=== PATIENT | male | born 1960 | race Caucasian/White ===

== ENCOUNTER → 2020-05-17 09:29 | Outpatient (CLI) | payer MEDICARE, SELFPAY ==
[2020-05-17 11:02] LABS: Chloride 101 mmol/L (98-107); Potassium 5.2 mmoL/L (3.5-5.1); Sodium 138 mmol/L (136-145)
[2020-05-17 11:05] LABS: Anion Gap 13.2 mEq/L (5-15); Blood Urea Nitrogen 16 mg/dl (9-20); Calcium 9.8 mg/dl (8.4-10.2); Carbon Dioxide 29 mmol/L (22.0-30.0); Estimated Glomerular Filt Rate 69 ml/min (>60); GFR (African American) 83 ML/MIN (>60); Glucose 101 mg/dl (74-100)
[2020-05-17 12:42] LABS: Basophils # 0.1 K/mm3 (0-0.2); Basophils % 0.8 % (0.1-2.0); Eosinophils # 0.4 K/mm3 (0.0-0.4); Eosinophils % 4.5 % (0.1-12.0); Hematocrit 45.1 % (42.0-52.0); Hemoglobin 15.1 g/dL (14.1-18.0); Lymphocytes # 3.4 K/mm3 (0.7-4.5); Lymphocytes % 39.1 % (10-50); Mean Corpuscular HGB Conc 33.4 g/dL (31.8-35.4); Mean Corpuscular Hemoglobin 30.4 pg (27.0-31.2); Mean Corpuscular Volume 91.1 fl (80-94); Mean Platelet Volume 7.7 fl (7.4-10.4); Monocytes # 0.8 K/mm3 (0.1-1.0); Monocytes % 9.2 % (1.7-9.3); Neutrophils % 46.4 % (37.0-80.0); Platelet Count 462 K/mm3 (142-424); Red Blood Count 4.95 M/mm3 (4.60-6.20); White Blood Count 8.7 K/mm3 (4.8-10.8)
[2020-05-18 08:21] LABS: PSA, Free 0.16 ng/mL; Prostate Specific Ag 0.5 ng/mL (0.0-4.0); Testosterone,Total 334 ng/dL (264-916)
== END ==
PROVIDERS: Visit Provider Family Medicine
DX: N18.3 Chronic kidney disease, stage 3 (moderate) (principal); K62.5 Hemorrhage of anus and rectum; R79.89 Other specified abnormal findings of blood chemistry; N50.812 Left testicular pain; N50.811 Right testicular pain; Z12.5 Encounter for screening for malignant neoplasm of prostate; E29.1 Testicular hypofunction
CPT/HCPCS: 36415; 80048; 84153; 84154; 84403; 85025

== ENCOUNTER → 2020-05-20 12:48 | Outpatient (CLI) | payer MEDICARE, SELFPAY ==
--- NOTE | 2020-05-20 12:58 | US_ITS ---
PROCEDURE: US TESTICULAR CLINICAL INDICATION: MAGO TESTICULAR PAIN COMPARISON: No exams were available for comparison FINDINGS: Right testicle: 26 millimeters x 32 mm x 30 millimeters. Epididymis 12 millimeters X 9 millimeters Left testicle: 20 millimeters x 42 20 millimeters X 28 millimeters. Epididymis: 10 millimeters x 7 millimeters Scrotum: Mild bilateral hydroceles Doppler signal: Mild increase in vascularity of the left testicle IMPRESSION: Bilateral hydroceles, possible mild left orchitis Dictated by: Bruce Tai 05/20/2020 14:53 Electronically signed by Bruce Tai in [place] 05/20/2020 14:53
== END ==
PROVIDERS: PCP Family Medicine; Visit Provider Family Medicine
DX: N50.812 Left testicular pain (principal); N50.811 Right testicular pain
CPT/HCPCS: 76870

== ENCOUNTER → 2020-05-30 08:30 | Outpatient (CLI) | payer MEDICARE, SELFPAY ==
[2020-05-30 10:29] LABS: Coronavirus 19 IgG Antibody Negative (Negative); Coronavirus 19 IgM Antibody Negative (Negative)
== END ==
PROVIDERS: Visit Provider Internal Medicine Gastroenterology
DX: Z01.818 Encounter for other preprocedural examination (principal)
CPT/HCPCS: 36415; 86328

== ENCOUNTER 2020-06-02 12:13 | Day surgery (SDC) | payer MEDICARE, SELFPAY ==
[2020-05-27 11:45] VITALS: BMI 29.3
--- NOTE | 2020-05-29 09:16 | SUR.PREOP ---
05/29/2020 @ 915--PHONE CALL MADE TO PATIENT. PATIENT UNDERSTANDS THAT LAB WORK AND COVID TESTING NEEDS TO BE COMPLETED @ 0900 ON 05/30/2020. PATIENT UNDERSTANDS IF LAB WORK AND COVID-19 TESTS ARE NOT COMPLETED BY 12PM ON THAT DATE, THE SURGERY SCHEDULED WILL BE CANCELLED AND RESCHEDULED FOR ANOTHER TIME.
[2020-06-02] VITALS (7 sets, daily range): BP systolic 100–123; BP diastolic 58–84; PULSE 50–62; RESP 18; TEMP 36.7; O2SAT 90–98
--- NOTE | 2020-06-02 14:17 | P.PCN_ITS ---
[facility] Procedure Note Procedure Note:: Colonoscopy Procedure Report: Colonoscopy with cold snare polypectomy and monopolar ablation/coagulation to destruction of internal hemorrhoids Endoscopist: Ozzy Koo II, MD Referring physician: Keshawn Hernandez MD Date of Procedure: June 02, 2020 Equipment: Olympus 180 variable stiffness pediatric colonoscope Sedation: MAC sedation Indication: Mr. Bahena is a 59-year-old gentleman with bright red blood and some darker blood with his bowel movements over the last year. This has increased and he notices this especially with looser bowel movements. He does note blood that coats the outside of the stool or drips into the commode. He does report some excessive wiping. He has lost 4 pounds in the last 2 or 3 weeks. He does state that his bowel movements are mostly regular. He reports no abdominal pain but has noted some burning abdominal discomfort that is generalized. He does state that his maternal aunt had colon cancer at the age of 56. This is his first colonoscopy performed for diagnostic purposes. Procedure: Prior to the procedure, a history and physical exam was performed, and patient's medications and allergies were reviewed. The risks, benefits and alternatives of the sedation and procedure were discussed with the patient. All questions were answered and informed consent was obtained. The patient was brought to the procedure room. Patient identification and proposed procedure were verified by the physician and the nurse. The patient was placed in a left lateral decubitus position and the scope was passed under direct vision. Throughout the procedure, the patient's blood pressure, pulse, and oxygen saturations were monitored continuously. The colonoscopy was accomplished without difficulty. The patient tolerated the procedure well. Findings: On digital rectal examination there was normal rectal tone. There were no external hemorrhoids. The prostate was 2+, mildly firm but symmetric without nodules. The colonoscope was introduced through the anal canal to the rectum and advanced to the cecum. The ileocecal valve and appendiceal orifice were id entified. The scope was advanced a short distance into the ileum which appeared grossly normal. The scope was then withdrawn into the colon. There were 6 colon polyps (cecum x2 (4 and 7 mm), ascending x2 (3 and 5 mm) and transverse x2 (3 and 4 mm)) which were all removed via cold snare polypectomy. There were a few mildly scattered diverticuli throughout the descending and sigmoid colon (LEFT colon). The rectum itself was normal. Upon retroflexion within the rectum there were grade 2 internal hemorrhoids. 3 columns of the hemorrhoids were ablated/coagulated using monopolar ablation to destruction. The preparation was excellent throughout with [place] Preparation Score of 9. The cecal time was 12 minutes. Impression: 1. Diminutive colonic polyps x6 2. Mild left-sided diverticulosis 3. Grade 2 internal hemorrhoids status post monopolar ablation/coagulation to destruction Plan: I will follow up the polyp pathology and recommend repeat colonoscopy again in 3 years based upon the polyp histology and family history. I would encourage bulk fiber supplementation on a long-term daily maintenance basis.
== END 2020-06-02 15:12 | disposition home or self-care (01) ==
LOC: OUTP 12:14
PROVIDERS: PCP Family Medicine; Visit Provider Internal Medicine Gastroenterology
PROC: 0DJD8ZZ Inspection of Lower Intestinal Tract, Via Natural or Artificial Opening Endoscopic (ICD-10-PCS; CPT 45378; principal; 2020-06-02 13:30)
DX: K63.5 Polyp of colon (principal); K57.30 Diverticulosis of large intestine without perforation or abscess without bleeding; K64.1 Second degree hemorrhoids; E78.5 Hyperlipidemia, unspecified; I25.10 Atherosclerotic heart disease of native coronary artery without angina pectoris; Z87.448 Personal history of other diseases of urinary system; Z88.6 Allergy status to analgesic agent; Z88.8 Allergy status to other drugs, medicaments and biological substances; Z79.82 Long term (current) use of aspirin; Z79.899 Other long term (current) drug therapy; I10 Essential (primary) hypertension; K21.9 Gastro-esophageal reflux disease without esophagitis; M19.90 Unspecified osteoarthritis, unspecified site; Z80.9 Family history of malignant neoplasm, unspecified
CPT/HCPCS: 45385; 46930; 88305

== ENCOUNTER 2021-08-11 14:38 | Emergency (ER) | payer MEDICARE, SELFPAY ==
[2021-08-11 14:39] VITALS: BP 148/87; PULSE 89; RESP 18; TEMP 36.7; O2SAT 100; BMI 32.8
[2021-08-11 14:42] VITALS: BP 141/82; PULSE 63; RESP 18; O2SAT 95; BMI 35.4
[2021-08-11 15:30] VITALS: BP 141/82; PULSE 63; RESP 18; TEMP 37; O2SAT 95; BMI 29.9
[2021-08-11 16:03] LABS: Apearance,Urine Clear (Clear); Bilirubin,Urine Negative (Negative); Blood, Urine Trace (Negative); Color,Urine Yellow (Yellow); Glucose,Urine (UA) Negative (Negative); Ketones,Urine Negative (Negative); PH,Urine 6.5 (5.0-8.5); Protein,Urine Negative (Negative); Specific Gravity, Urine 1.015 (1.005-1.030); UTC Leukocyte Esterase,Urine 1+ (Negative); UTC Nitrate,Urine Negative (Negative); Urobilinogen,Urine 0.2 EU/dl (0.2)
--- NOTE | 2021-08-11 16:33 | PC.NURSE ---
PATIENT SENT TO ER PER Marlee JOHNSON FOR FURTHER EVALUATION. REPORT GIVEN TO Maria Dolores MONTES RN
--- NOTE | 2021-08-11 16:41 | CT_ITS ---
PROCEDURE INFORMATION: Exam: CT Abdomen And Pelvis Without Contrast Exam date and time: 08/11/2021 4:41 PM Age: 60 years old Clinical indication: Abdominal pain; Acute; Prior surgery; Surgery date: 6+ months; Surgery type: Gallbladder and l5/s1 back surgery; Patient HX: Flank pain x 3 days; Additional info: Flank pain, hematuria TECHNIQUE: Imaging protocol: Computed tomography of the abdomen and pelvis without contrast. Radiation optimization: All CT scans at this facility use at least one of these dose optimization techniques: automated exposure control; mA and/or kV adjustment per patient size (includes targeted exams where dose is matched to clinical indication); or iterative reconstruction. COMPARISON: US TESTICULAR 05/20/2020 1:27 PM FINDINGS: Liver: The unenhanced liver is unremarkable. Gallbladder and bile ducts: There is no biliary ductal dilatation status post cholecystectomy. Pancreas: Unremarkable. Spleen: No splenomegaly. Splenic densities likely represent calcified granulomas. Adrenal glands: No adrenal nodule. Kidneys and ureters: No hydronephrosis or calculi. Stomach and bowel: There are scattered colonic diverticula. No obstruction. Appendix: The appendix is normal. Intraperitoneal space: No free air or fluid. There is haziness throughout the mesentery with scattered subcentimeter mesenteric lymph nodes. Vasculature: The abdominal aorta is normal in caliber. Coronary artery calcifications/stents are present. Note is made of embolic material within the right gonadal vein. Lymph nodes: There is an enlarged left inguinal lymph node. Urinary bladder: Unremarkable as visualized. Reproductive: Unremarkable as visualized. Bones/joints: No acute fracture. There are degenerative changes of the spine. Soft tissues: Unremarkable. IMPRESSION: 1. No renal calculus or hydronephrosis. 2. Haziness throughout the mesentery with scattered subcentimeter mesenteric lymph nodes could be seen in the setting of mesenteric panniculitis. This finding can be seen in the setting of myriad conditions including neoplastic infiltration therefore recommend follow-up CT of the abdomen and pelvis with intravenous contrast in six months. 3. Enlarged left inguinal lymph node, nonspecific.
--- NOTE | 2021-08-11 17:42 | HMH.EDGENADL ---
ED Disposition Clinical Impression: Low back pain Qualifiers: Chronicity: acute Back pain laterality: bilateral Sciatica presence: with sciatica Sciatica laterality: bilateral sciatica Qualified Code(s): M54.42 - Lumbago with sciatica, left side; M54.41 - Lumbago with sciatica, right side Hematuria Qualifiers: Hematuria type: benign essential microscopic Qualified Code(s): R31.1 - Benign essential microscopic hematuria Disposition: Home, Self-Care Condition on Discharge: Good Additional Instructions: Follow-up with PCP in 1 to 2 days. Repeat urinalysis through your PCP office and if continued hematuria, referral to urology. Referrals: Provider,Referral, MD [Primary Care Provider] - 3 days Time of Disposition: 18:15 - Critical Care Critical Care Time: No Attestation: On 08/11/21, the high probability of a clinically significant, sudden or life threatening deterioration of the following system(s) required my full and direct attention, intervention and personal management. The time I documented below is in addition to time spent performing reported procedures but includes the following listed in this critical care notation. Medical Decision Making - Medical Records Medical records reviewed: Yes: I reviewed the patient's medical records. - Deonte Inquiry Pt receiving controlled substance: No Vital Signs: 08/11/21 14:39 08/11/21 14:42 08/11/21 15:30 Temperature 98.1 F 98.6 F Temperature Source Oral Oral Pulse Rate [Left Radial] 89 63 63 Respiratory Rate 18 18 18 Blood Pressure [Left Arm] 148/87 H 141/82 H 141/82 H Blood Pressure Mean [Left Arm] 107 101 101 Blood Pressure Source [Left Arm] Automatic Cuff Automatic Cuff Blood Pressure Position [Left Arm] Sitting Sitting 02 Sat by Pulse Oximetry 100 95 95 Oxygen Delivery Method Room Air Room Air Room Air - Lab Data Lab results reviewed: Yes: I reviewed the patient's lab results. Lab Results 08/11/21 16:02: Urine Color Yellow, Urine Appearance Clear, Urine pH 6.5, Ur Specific [place] 1.015, Urine Protein Negative, Urine Glucose (UA) Negative, Urine Ketones Negative, Urine Blood Trace, Urine Nitrate Negative, Urine Bilirubin Negative, Urine Urobilinogen 0.2, Ur Leukocyte Esterase 1+ A 08/11/21 17:45: Sodium 139, Potassium 4.2, Chloride 104, Carbon Dioxide 26, Anion Gap 13.2, BUN 17, Creatinine 1.20, Estimated Creat Clear 78, Estimated GFR 62, Est GFR ( Amer) 75, Glucose 102 H, Calcium 9.4 Result diagrams: 08/11/21 17:45 Orders (Tests/Meds): ORDERS Category Date Time Status Urine Culture Stat Micro 08/11/21 15:50 Received Medical Decision Narrative: 60yo M sent to the emergency department from [facility] secondary to low back pain rating down both legs after the [facility] midlevel was concerned the patient might have a kidney stone. Patient has undergone a CT scan and will add basic metabolic panel to evaluate his renal function. Patient has no sign of kidney stone. His metabolic panel demonstrates a creatinine of 1.2. Patient is discharged home in stable condition. I suspect the patient has flareup of his chronic low back pain with hematuria. Encouraged to follow-up with his PCP for repeat urinalysis and possibly be evaluated by urology for his hematuria. General Adult HPI - General Chief complaint: PAIN Stated complaint: lower back pain Time Seen by Provider: 08/11/21 17:42 Mode of Arrival: Ambulatory Source of Information: Patient Limitations: No Limitations Description of Symptoms (Recalled from ER Triage Doc. by RN): PATIENT C/O LOWER BACK PAIN THAT STARTED TUESDAY MORNING. ALSO REPORTS PINS/NEEDLE SENSATION TO BACK OF BILATERAL LEGS. NO KNOWN INJURY. PATIENT REPORTS HX OF LOWER BACK SURGERY AND STAGE 4 KIDNEY DISEASE - History of Present Illness HPI narrative: 60yo M initially evaluated in the [facility] sent to the emergency department after they found laparoscopic hematuria in his urine. Patient reports a history of stage IV kidney disease luis
[2021-08-11 17:59] LABS: Chloride 104 mmol/L (98-107); Sodium 139 mmol/L (136-145)
[2021-08-11 18:00] LABS: Potassium 4.2 mmoL/L (3.5-5.1)
[2021-08-11 18:02] LABS: Blood Urea Nitrogen 17 mg/dl (9-20); Creatinine Clearance Estimated 78 mL/min (50-200); Estimated Glomerular Filt Rate 62 ml/min (>60); GFR (African American) 75 ML/MIN (>60)
[2021-08-11 18:03] LABS: Anion Gap 13.2 mEq/L (5-15); Calcium 9.4 mg/dl (8.4-10.2); Carbon Dioxide 26 mmol/L (22.0-30.0); Glucose 102 mg/dl (74-100)
[2021-08-11 18:51] VITALS: BP 140/83; PULSE 53; RESP 20; TEMP 37; O2SAT 100
== END 2021-08-11 18:52 | disposition home or self-care (01) ==
LOC: ER 14:53 → UTC 15:08 → ER 16:34
PROVIDERS: Nurse Practitioner Family; Emergency Provider Family Medicine
DX: M54.42 Lumbago with sciatica, left side (principal); R31.1 Benign essential microscopic hematuria; N18.4 Chronic kidney disease, stage 4 (severe); I25.10 Atherosclerotic heart disease of native coronary artery without angina pectoris; K21.9 Gastro-esophageal reflux disease without esophagitis; E78.5 Hyperlipidemia, unspecified; I10 Essential (primary) hypertension; Z79.899 Other long term (current) drug therapy
CPT/HCPCS: 74176; 80048; 81003; 87086; 99283

== ENCOUNTER → 2023-01-24 07:14 | Outpatient (CLI) | payer MEDICARE, SELFPAY ==
--- NOTE | 2023-01-24 | CA_ITS ---
APPROVED REPORT Exam: Exercise Treadmill Technologist: Concepcion Rush Ht: 5 ft 3 in Wt: 181 lbs BSA: 1.85 m2 HR: 51 bpm BP: 117/67 mmHg Indications: Chest pain Medical History Medications: Famotidine,,,,, RoSUVASTATIN,,,,, Stress Test Details Test: Lake HR Resting HR: 52 bpm Max Heart Rate (APMHR): 158.457914 bpm Max HR Achieved: 142 bpm Target HR (85% APMHR): 134.312325 bpm % of APMHR: 89.87 Recovery HR: 80 bpm BP Resting BP: 117.0/67.0 mmHg Max BP: 170.0/68.0 mmHg Recovery BP: 134.0/69.0 mmHg ECG Resting ECG: Sinus rhythm Clinical Exercise duration: 06:00 min Highest Stage Achieved: Exercise capacity: 7.0 METs Stress ECG Conclusion Symptoms: Shortness of breath with exercise. Chest tightness with peak exercise. Arrhythmias/Ectopy: None Test Summary REST . . . . . . . Sitting REST . . . . . . . Standing REST 17:40 0.0 0.0 52 . 117/ 67 . . Stage 1 01:00 10.0 1.7 92 . . . . Stage 1 02:00 10.0 1.7 106 . . . . Stage 1 03:00 10.0 1.7 111 . 158/ 76 . . Stage 2 01:00 12.0 2.5 128 . . . . Stage 2 . . . . . . . Myoview Injected Stage 2 02:00 12.0 2.5 138 . . . . Stage 2 . . . . . . . chest tightness Stage 2 03:00 12.0 2.5 139 . . . Stop exercise at 06:00 RECOVERY 01:00 0.0 0.0 103 . 170/ 68 . . RECOVERY 02:00 0.0 0.0 85 . 170/ 68 . . RECOVERY 03:00 0.0 0.0 76 . 144/ 69 . . RECOVERY 04:00 0.0 0.0 68 . 144/ 69 . . RECOVERY . . . . . . . chest pressure RECOVERY 05:00 0.0 0.0 72 . 134/ 69 . . RECOVERY 05:15 0.0 0.0 72 . 134/ 69 . . Electronically signed by : Anthony Daugherty MD 01/24/2023 12:34:10
--- NOTE | 2023-01-24 07:15 | NM_ITS ---
APPROVED REPORT Exam: Nuclear Stress Test Indication: Chest pain, SOB, Fatigue, Family history, CAD Patient Location: Outpatient Stress Tech: Concepcion Rush NM Tech:Carlene Garibay, ARRT, RT (R)(N) Ht: 5 ft 4 in Wt: 181 lbs HR: 52 bpm BP: 117/67 mmHg BSA: 1.88 m2 TID: 1.24 BMI: 31.0 History: Chest pain, SOB, Fatigue, Family history, CAD Procedure: Patient exercised on Lake protocol 6:00 minutes and sec, resting heart rate 52 bpm, resting blood pressure 117/67 mmHg, with exercise maximum heart rate achived was 142 bpm which is 90 % of the maximum predicted heart rate and blood pressure was 170/68 mmHg. Test was stopped due to SOB, chest tightness. Patient has Adequate exercise capacity, achieved 7.0 METs of workload on treadmill, the blood pressure response to exercise was Adequate. Electrocardiogram Resting electrocardiogram shows sinus rhythm, with exercise there is less than 1.[address] segment depression noted from the baseline EKG. The EKG portion of the exercise Myoview is negative for ischemia. Cardiac Stress and Resting SPECT Images: Cardiac Stress and Resting SPECT images were obtained using technetium 99m Myoview 28.3 mCi stress and 10.57 mCi at rest. Gated SPECT analysis of segmental wall motion and calculation of the ejection fraction also done. Prone images were also obtained. Cardiac stress and rest SPECT images show uniform myocardial activity without segmental perfusion abnormality, computer derived ejection fraction is 52% with no regional wall motion abnormality, right ventricle is normal size and contractility. Conclusion: 1. The EKG portion of the exercise Myoview is negative for ischemia, patient has adequate exercise capacity achieved 7 METS of workload on treadmill, the blood pressure response to exercise was adequate, test was stopped due to chest tightness and shortness of breath. 2. No scintigraphic evidence of reversible ischemia seen at this level of exercise, computer derived ejection fraction 52% with no regional wall motion abnormality, right ventricle is normal size and contractility. Electronically signed by : Anthony Daugherty MD 01/24/2023 12:37:31
--- NOTE | 2023-01-24 08:55 | CA_ITS ---
APPROVED REPORT EXAM: Comprehensive 2D, Doppler, and color-flow Echocardiogram Certified Personal Trainer: EZEQUIEL Varma, RVS Ht: 5 ft 3 in Wt: 181lbs BSA: 1.85 BP: 133/77 mmHg Indications: CP, CKD, CAD, HLD, HTN, MARTIN 2D Dimensions IVSd 0.98 cm M: 0.6-1.2 LVEF (Visual) 66.20 % PWd 1.00 cm M: 0.6 - 1.2 LA Volume 61.90 mL LVDd 4.49 cm M: 4.2 - 5.9 LA Volume Index 33.044828 mL/m2 (M/F) 16-34 LVDs 2.86 cm M: 2.5 - 4.0 Aortic Root 3.35 cm M: 3.1 - 3.7 Left Atrium 3.99 cm M: 3.0 - 4.0 LVOT 2.02 cm (M/F) 1.5-2.5 M-Mode Dimensions RVDd 2.92 cm (0.9-2.6) LA Diam 4.12 cm (1.9-4.0) LVDd 5.28 cm (3.5-5.7) Ao Diam 3.28 cm (2.0-3.7) LVDs 3.07 cm (3.5-5.7) IVSd 1.21 cm (0.6-1.1) PWd 0.99 cm (0.6-1.1) EF (Teich) 72.40% EPSs 0.23 cm FS 41.90% EDV (Teich) 134.20 mL TAPSE 2.90 (<1.7) ESV (Teich) 37.00 mL LV Diastology E Decel Time 173.00 (160-240 msec) E/A Ratio 1.32 MED E' 9.00 (< 7 cm/sec) MED A' 13.40 cm/s E'/MED E' Ratio 7.67 (>14) LAT E' 11.70 (<10 cm/sec) LAT A' 11.00 cm/s E/LAT E' Ratio 5.90 (>14) Pulm Vein s 39.00 cm/sec Pulm Vein d 22.00 cm/sec Ar-A Duration 103.00 msec Aortic Valve LVOT Max 104.00 (70-110 cm/s) LVOT VTI 21.79 cm AoV Peak Yvon. 147.00 (50-130 cm/s) AO Peak GR. 8.60 mmHg AO Mean GR. 4.30 (<5 mmHg) AO VTI 30.49 (18-25 cm) HOME (VTI) 2.29 (2.5-4.5 cm2) Mitral Valve MV A Velocity 52.00 (40-130 cm/s) E/A Ratio 1.32 MV Decel. Time 173.00 (160-240 ms) MV PHT 50.00 ms Pulmonary Valve PV Peak Velocity 93.00 (50-150 cm/s) Tricuspid Valve TR P. Velocity 232.00 cm/s RAP Estimate 10.00 mmHg RVSP 31.50 mmHg Left Ventricle Left atrium is mildly enlarged, left ventricle is normal size mild concentric left ventricular hypertrophy, estimated ejection fraction 55% with no regional wall motion abnormality, diastolic parameters are inconclusive. Right Ventricle Right atrium and right ventricular mildly enlarged with normal contractility. Aortic Valve Aortic valve is minimally thickened and calcified without aortic stenosis aortic insufficiency. Mitral Valve Mitral valve is grossly normal, there is trace mitral regurgitation. Tricuspid Valve Tricuspid grossly normal, there is trace tricuspid regurgitation, tricuspid regurgitation jet velocity is inadequate for calculation of the right ventricular systolic pressure. Pulmonic Valve Pulmonic valve is poorly visualized. Great Vessels Aortic root is normal size. Inferior vena cava is poorly visualized. Pericardium No significant pericardial effusion noted. Conclusion 1. Mild biatrial enlargement, normal left ventricular size, mild concentric left ventricular hypertrophy, estimated ejection fraction 55% with no regional wall motion abnormality, diastolic parameters are inconclusive. 2. Mildly enlarged right ventricle with normal contractility. 3. Trace mitral and tricuspid regurgitation. 4. No significant pericardial effusion noted. 5. Inferior vena cava is poorly visualized. Electronically signed by : Anthony Daugherty MD 01/24/2023 17:43:26
--- NOTE | 2023-01-24 09:45 | HMH.ITSHM ---
Current Home Medications as stated by this patient Marco A Bahena or patient representative. []ROSUVASTATIN FAMOTIDINE AMLOIDIPINE ACETOMINOPHEN
== END ==
LOC: RAD 07:15
PROVIDERS: PCP Family Medicine; Visit Provider Nurse Practitioner Family
DX: R06.00 Dyspnea, unspecified; I20.8 Other forms of angina pectoris
CPT/HCPCS: 78452; 93017; 93306; A9502

== ENCOUNTER 2023-02-01 08:00 | Day surgery (SDC) | payer MEDICARE, SELFPAY ==
[2023-02-01] VITALS (15 sets, daily range): BP systolic 113–161; BP diastolic 75–92; PULSE 65–87; RESP 18; O2SAT 92–98; BMI 32.1
--- NOTE | 2023-02-01 07:08 | IR_ITS ---
APPROVED REPORT Patient Location: Outpatient Pocketbook Maker: NORA Jiang RT (R) PROCEDURES Selective coronary angiogram FFR to the LAD Drug-eluting stent deployment to the proximal LAD INDICATION Angina pectoris, Abnormal stress test, Coronary artery disease, Ischemic response to adenosine with an FFR index of 0.74 Informed consent was obtained prior to the procedure. COMPLICATIONS None Estimated Blood Loss: Less than 10 mls TECHNIQUE One percent lidocaine used to anesthetize the right anterior aspect of the wrist. The right radial artery was accessed via the Seldinger technique. A 6 [place] sheath was placed in the right radial artery. 150 mg of magnesium sulfate, 1mg Lidocaine and 5000 U Heparin were given through the arterial sheath. The papa catheter was also used to perform selective coronary angiogram. At the end the diagnostic angiogram therapeutic heparin was administered giving a therapeutic ACT and the guide catheter was placed in left main artery followed by Choice PT extra-support wire being placed down the LAD. An FFR nevus catheter was advanced following equalization and adenosine was infused per protocol dropping the FFR index to 0.74. At this point a 3.5 x 12 mm resolute Wilson stent was deployed in the proximal LAD at 18 jose reducing the stenosis. An additional 3.5 x 26 mm resolute Romain stent was placed distal to the for stent yet still overlapping it and landing at proximal to a large first diagonal artery and deployed at 18 jose. The balloon was brought back and deployed at 20 jose to mesh the 2 stents. Excellent angiograph results were obtained with MARCELA-3 flow down the vessel before and after the procedure. At the end of the procedure the apparatus was removed the sheath was removed and hemostasis was achieved using TR banding patient was transferred to the postop putting in stable condition ANGIOGRAPHIC RESULTS The left main artery Normal The left anterior descending artery Has a proximal 40% stenosis followed by an additional proximal long cylindrical 30% stenosis followed by a stent which is widely patent The circumflex artery Massively large dominant normal The right coronary artery Vestigial normal The GOMES ventriculogram reveals Not performed The left ventricular end-diastolic pressure Not measured IMPRESSION Exercise-induced angina pectoris producing an abnormal stress test Angiographically indeterminate stenosis in the proximal LAD which produced a severe ischemic response to adenosine with an FFR index of 0.74 Drug-eluting stent deployment to the proximal LAD hemodynamically severe disease reduced to 0% with 2 contiguous drug-eluting stents PLAN 1. Dual antiplatelet therapy 2. LDL less than 55 to be achieved with high intensity statin 3. Avoidance of tobacco products 4. Risk factor modification 5. Cardiac rehabilitation Electronically signed by : Cole Peterson MD 02/01/2023 11:02:59
[2023-02-01 08:39] LABS: Basophils # 0.1 K/mm3 (0-0.2); Basophils % 1.4 % (0.1-2.0); Eosinophils # 0.4 K/mm3 (0.0-0.4); Eosinophils % 4.8 % (0.1-12.0); Hematocrit 45.6 % (42.0-52.0); Hemoglobin 14.9 g/dL (14.1-18.0); Lymphocytes # 2.8 K/mm3 (0.7-4.5); Lymphocytes % 35.6 % (10-50); Mean Corpuscular HGB Conc 32.6 g/dL (31.8-35.4); Mean Corpuscular Hemoglobin 30.1 pg (27.0-31.2); Mean Corpuscular Volume 92.5 fl (80-94); Mean Platelet Volume 7.6 fl (7.4-10.4); Monocytes # 0.7 K/mm3 (0.1-1.0); Monocytes % 8.3 % (1.7-9.3); Neutrophils # 3.9 K/mm3 (1.8-7.8); Platelet Count 373 K/mm3 (142-424); Red Blood Count 4.93 M/mm3 (4.60-6.20); Red Cell Distribution Width 13.7 % (11.5-17.5); White Blood Count 7.8 K/mm3 (4.8-10.8)
[2023-02-01 08:45] LABS: Chloride 102 mmol/L (98-107)
[2023-02-01 08:46] LABS: Potassium 3.9 mmoL/L (3.5-5.1); Sodium 139 mmol/L (136-145)
[2023-02-01 08:49] LABS: Anion Gap 8.9 mEq/L (5-15); Blood Urea Nitrogen 13 mg/dl (9-20); Calcium 9.2 mg/dl (8.4-10.2); Carbon Dioxide 32 mmol/L (22.0-30.0); Creatinine Clearance Estimated 81 mL/min (50-200); Estimated Glomerular Filt Rate 68 ml/min (>60); GFR (African American) 82 ML/MIN (>60); Glucose 108 mg/dl (74-100)
[2023-02-01 11:31] LABS: CATHL Activated Clotting Time 337 SEC (74-125)
--- NOTE | 2023-02-01 15:02 | HMH.PHACL ---
PHA E [employer] Retailer Discharge Med Concaving Machine Operator: Marco A Bahena has received discharge medication counseling on the following medications: BISOPROLOL 5 MG DAILY ROSUVASTATIN 10 MG HS BRILINTA 90 MG BID ASPIRIN 81 MG DAILY MD NOT WANTING TO START SALLY/ARB AT THIS TIME.
== END 2023-02-01 14:56 | disposition home or self-care (01) ==
PROVIDERS: PCP Family Medicine; Visit Provider Internal Medicine
DX: I25.118 Atherosclerotic heart disease of native coronary artery with other forms of angina pectoris (principal); I12.0 Hypertensive chronic kidney disease with stage 5 chronic kidney disease or end stage renal disease; N18.2 Chronic kidney disease, stage 2 (mild); E78.5 Hyperlipidemia, unspecified; Z79.899 Other long term (current) drug therapy
CPT/HCPCS: 80048; 85025; 85347; 92928; 93454; 93571; 99152; 99153; C1725; C1769; C1874; C1876; C9600; J0153; J1644; Q9967

== ENCOUNTER → 2023-02-08 08:13 | Outpatient (CLI) | payer MEDICARE, SELFPAY ==
[2023-02-08 08:49] LABS: Basophils # 0.1 K/mm3 (0-0.2); Basophils % 1.2 % (0.1-2.0); Eosinophils # 0.7 K/mm3 (0.0-0.4); Eosinophils % 6.5 % (0.1-12.0); Hematocrit 44.6 % (42.0-52.0); Hemoglobin 14.2 g/dL (14.1-18.0); Lymphocytes % 37.3 % (10-50); Mean Corpuscular HGB Conc 31.8 g/dL (31.8-35.4); Mean Corpuscular Hemoglobin 29.5 pg (27.0-31.2); Mean Corpuscular Volume 92.9 fl (80-94); Mean Platelet Volume 7.6 fl (7.4-10.4); Monocytes # 0.7 K/mm3 (0.1-1.0); Neutrophils # 5.1 K/mm3 (1.8-7.8); Neutrophils % 48.1 % (37.0-80.0); Platelet Count 400 K/mm3 (142-424); Red Blood Count 4.81 M/mm3 (4.60-6.20); Red Cell Distribution Width 13.8 % (11.5-17.5); White Blood Count 10.6 K/mm3 (4.8-10.8)
[2023-02-08 09:26] LABS: Chloride 105 mmol/L (98-107)
[2023-02-08 09:27] LABS: Potassium 4.9 mmoL/L (3.5-5.1); Sodium 139 mmol/L (136-145)
[2023-02-08 09:29] LABS: Blood Urea Nitrogen 16 mg/dl (9-20); Estimated Glomerular Filt Rate 61 ml/min (>60); GFR (African American) 74 ML/MIN (>60)
[2023-02-08 09:30] LABS: Anion Gap 11.9 mEq/L (5-15); Calcium 9.4 mg/dl (8.4-10.2); Carbon Dioxide 27 mmol/L (22.0-30.0); Glucose 100 mg/dl (74-100)
[2023-02-08 10:16] LABS: Bilirubin,Unconjugated 0.1 mg/dL (0.0-1.1)
[2023-02-08 10:17] LABS: Alanine Aminotransferase 10 U/L (12-78); Albumin Level 4.3 g/dl (3.5-5.0); Alkaline Phosphatase 60 U/L (38-126); Aspartate Amino Transferase 29 U/L (17-59); Bilirubin,Direct 0.2 mg/dl (0.0-0.4); Bilirubin,Indirect 0.1 mg/dL (0.0-0.9); Bilirubin,Total 0.3 mg/dl (0.2-1.3); Chol/HDL Ratio 3.1 (1-3.5); Cholesterol 97 mg/dl (140-200); HDL Cholesterol 31 mg/dl (40-60); Total Protein,Serum 6.9 g/dl (6.3-8.2); Triglycerides 367 mg/dl (30-150); VLDL Cholesterol 73 mg/dL (0-40)
[2023-02-08 10:28] LABS: Direct LDL Cholesterol 36.25 mg/dL (100-129)
== END ==
PROVIDERS: Nurse Practitioner; PCP Family Medicine; Visit Provider Internal Medicine
DX: I10 Essential (primary) hypertension; I25.10 Atherosclerotic heart disease of native coronary artery without angina pectoris; K21.9 Gastro-esophageal reflux disease without esophagitis; N18.2 Chronic kidney disease, stage 2 (mild); Z95.5 Presence of coronary angioplasty implant and graft; E78.49 Other hyperlipidemia
CPT/HCPCS: 36415; 80048; 80061; 80076; 85025

== ENCOUNTER 2024-07-25 09:34 | Outpatient (CLI) | payer MEDICARE, SELFPAY ==
[2024-07-25 10:02] LABS: Basophils # 0.1 K/mm3 (0-0.2); Basophils % 1.2 % (0.1-2.0); Eosinophils # 0.5 K/mm3 (0.0-0.4); Eosinophils % 4.6 % (0.1-12.0); Hematocrit 44.8 % (42.0-52.0); Hemoglobin 14.1 g/dL (14.1-18.0); Lymphocytes # 4.1 K/mm3 (0.7-4.5); Lymphocytes % 38.6 % (10-50); Mean Corpuscular HGB Conc 31.4 g/dL (31.8-35.4); Mean Corpuscular Hemoglobin 30.4 pg (27.0-31.2); Mean Corpuscular Volume 96.7 fl (80-94); Mean Platelet Volume 7.4 fl (7.4-10.4); Monocytes % 9.3 % (1.7-9.3); Neutrophils # 4.9 K/mm3 (1.8-7.8); Neutrophils % 46.4 % (37.0-80.0); Platelet Count 415 K/mm3 (142-424); Red Blood Count 4.63 M/mm3 (4.60-6.20); Red Cell Distribution Width 14.3 % (11.5-17.5); White Blood Count 10.5 K/mm3 (4.8-10.8)
[2024-07-25 11:35] LABS: Albumin Level 4.7 g/dl (3.5-5.0); Chloride 104 mmol/L (98-107); Potassium 4.7 mmoL/L (3.5-5.1); Sodium 139 mmol/L (136-145)
[2024-07-25 11:37] LABS: Anion Gap 12.7 mEq/L (5-15); Bilirubin,Unconjugated 0.1 mg/dL (0.0-1.1); Blood Urea Nitrogen 18 mg/dl (9-20); Carbon Dioxide 27 mmol/L (22.0-30.0); Estimated Glomerular Filt Rate 68 ml/min (>60); GFR (African American) 82 ML/MIN (>60)
[2024-07-25 11:38] LABS: Alanine Aminotransferase 10 U/L (12-78); Alkaline Phosphatase 55 U/L (38-126); Aspartate Amino Transferase 38 U/L (17-59); Bilirubin,Direct 0.4 mg/dl (0.0-0.4); Bilirubin,Indirect 0.1 mg/dL (0.0-0.9); Bilirubin,Total 0.5 mg/dl (0.2-1.3); Calcium 9.8 mg/dl (8.4-10.2); Chol/HDL Ratio 3.3 (1-3.5); Cholesterol 114 mg/dl (140-200); Glucose 101 mg/dl (74-100); HDL Cholesterol 35 mg/dl (40-60); Magnesium 2.2 mg/dl (1.6-2.3); Total Protein,Serum 7.5 g/dl (6.3-8.2); Triglycerides 203 mg/dl (30-150); VLDL Cholesterol 41 mg/dL (0-40)
[2024-07-25 11:49] LABS: Direct LDL Cholesterol 40.26 mg/dL (100-129)
[2024-07-25 11:52] LABS: Free T4 (Free Thyroxine) 0.98 ng/dl (0.78-2.19)
[2024-07-25 12:08] LABS: Thyroid Stimulating Hormone 1.47 uIU/mL (0.465-4.68)
== END 2024-07-25 23:59 | disposition home or self-care (01) ==
LOC: LAB 09:36
PROVIDERS: PCP Family Medicine; Visit Provider Nurse Practitioner Family
DX: R06.00 Dyspnea, unspecified (principal); E78.49 Other hyperlipidemia; I11.9 Hypertensive heart disease without heart failure; I25.119 Atherosclerotic heart disease of native coronary artery with unspecified angina pectoris; I12.9 Hypertensive chronic kidney disease with stage 1 through stage 4 chronic kidney disease, or unspecified chronic kidney disease; N18.2 Chronic kidney disease, stage 2 (mild); R94.31 Abnormal electrocardiogram [ECG] [EKG]; K21.9 Gastro-esophageal reflux disease without esophagitis; Z95.5 Presence of coronary angioplasty implant and graft
CPT/HCPCS: 36415; 80048; 80061; 80076; 83735; 84439; 84443; 85025

== ENCOUNTER 2024-08-08 07:38 | Outpatient (CLI) | payer MEDICARE, SELFPAY ==
--- NOTE | 2024-08-08 07:38 | CA_ITS ---
APPROVED REPORT Exam: Exercise Treadmill Technologist: Yumiko Orr, Ht: 5 ft 3 in Wt: 184 lbs BSA: 1.87 m2 HR: 50 bpm BP: 114/54 mmHg Rhythm: Sinus bradycardia Indications: Chest pain Medical History Medical History: HTN, Hyperlipidemia Medications: tylenol,asa,bisoprolol,plavix,famotidine,crestor Cardiac Risk Factors: HTN, Hyperlipidemia, FHX of CAD Stress Test Details Test: Manual Treadmill HR Resting HR: 56 bpm Max Heart Rate (APMHR): 157 bpm Max HR Achieved: 140 bpm Target HR (85% APMHR): 133 bpm % of APMHR: 89 Recovery HR: 79 bpm HR response to stress: Normal HR response to stress BP Resting BP: 114.0/54 mmHg Max BP: 210/60 mmHg Recovery BP: 152.0/69.0 mmHg BP response to stress: Abnormal hypertensive response to stress. ECG Resting ECG: Sinus bradycardia Stress EC mm upsloping ST depression Arrhythmia: PACs, PVCs Recovery ECG: Return to baseline within 3 minutes of recovery Recovery Arrhythmia: PACs, PVCs Clinical Exercise duration: 08:01 min Highest Stage Achieved: Exercise capacity: 10.1 METs Overall Exercise Capacity for Age: Average Stress ECG Conclusion The patient was able to exercise for a total of 8 minutes, 01 seconds. He achieved a total of 10.1 METS. He has average exercise capacity compared to age and sex matched peers. He has normal HR, but exaggerated hypertensive BP, response to exercise. Max heart rate 140 bpm which danae 89% of PM for age. max bp 210/60. METS: 10.1. Test stopped due to soa and fatigue. Chest burning and tightness during test. Ectopy: Rare PAC, rare PVC. ST changes: [address] depression Conclusion: Average exercise capacity. Hypertensive BP response to exercise. Equivocal ST changes at peak stress. Myoview images reported separately. Test Summary REST . . . . . . . Resting REST . . . . . . . Standing REST 04:01 0.0 0.0 56 . 114/ 54 . . Stage 1 01:00 10.0 1.7 87 . . . . Stage 1 02:00 10.0 1.7 92 . . . . Stage 1 03:00 10.0 1.7 96 . 210/ 60 . . Stage 2 01:00 12.0 2.5 108 . . . . Stage 2 02:00 12.0 2.5 109 . . . . Stage 2 03:00 12.0 2.5 115 . 210/ 60 . . Stage 3 . . . . . . . Myoview Injected Stage 3 01:00 14.0 3.4 134 . . . . Stage 3 . . . . . . . Protocol changed to Manual Treadmill Stage 3 02:00 0.0 2.5 130 . . . . Stage 3 02:01 0.0 2.5 130 . . . Stop exercise at 08:01 RECOVERY 01:00 0.0 0.0 99 . . . . RECOVERY 02:00 0.0 0.0 79 . 152/ 69 . . RECOVERY 03:00 0.0 0.0 72 . 144/ 75 . . RECOVERY 04:00 0.0 0.0 64 . 144/ 75 . . RECOVERY 05:00 0.0 0.0 65 . 123/ 64 . . RECOVERY 05:19 0.0 0.0 66 . 123/ 64 . . Electronically signed by : Maria Ines Abraham MD 08/08/2024 12:12:02
--- NOTE | 2024-08-08 07:38 | NM_ITS ---
APPROVED REPORT Exam: Nuclear Stress Test Indication: cad, hyperlipidemia, fm hx, c.p., sob Patient Location: Outpatient Stress Tech: Yumiko Orr PR Tech:Geovanna Bertrand SHARLENECamila RT (R)(N)(M) Ht: 5 ft 2 in Wt: 185 lbs HR: 50 bpm BP: 114/54 mmHg BSA: 1.85 m2 Rhythm: NSR TID: 1.06 BMI: 33.8 History: cad, hyperlipidemia, fm hx, c.p., sob Procedure: Patient exercised on Lake protocol 8:01 minutes and sec, resting heart rate 50 bpm, resting blood pressure 114/54 mmHg, with exercise maximum heart rate achived was 140 bpm which is 89 % of the maximum predicted heart rate and blood pressure was 210/60 mmHg. Test was stopped due to sob, fatigue, c.p.. Patient has Average exercise capacity, achieved 10.1 METs of workload on treadmill, the blood pressure response to exercise was Hypertensive. Cardiac Stress and Resting SPECT Images: Cardiac Stress and Resting SPECT images were obtained using technetium 99m Myoview 31.5 mCi stress and 10.87 mCi at rest. Technically difficult study due to significant radiotracer uptake in the GI tract in close proximity to the inferior LV wall. Resting and stress imaging in supine and prone positions demonstrate a small sized, mild, fixed perfusion defect towards the LV apex. Gated imaging demonstrates low normal global and regional LV systolic function. LVEF is calculated at 53%. Conclusion: Technically difficult study. Small sized, mild, fixed perfusion defect towards the LV apex. No evidence of reversible ischemia. Gated imaging demonstrates low normal global and regional LV systolic function. LVEF is calculated at 53%. Of note, the patient has a hypertensive BP response to exercise. Additional BP control is recommended. Electronically signed by : Maria Ines Abraham MD 08/08/2024 12:14:44
[2024-08-08] MEDS: SODIUM CHLORIDE 0.9% 10ML SYR (RAD ONLY) 10 ML IV ×2 (07:45→09:00)
[2024-08-08] MEDS: ISOTOPE MYOVIEW (PER STUDY) 1 DOSE IV (10:13)
== END 2024-08-08 23:59 | disposition home or self-care (01) ==
LOC: RAD 07:38
PROVIDERS: PCP Family Medicine; Visit Provider Nurse Practitioner Family
DX: R06.00 Dyspnea, unspecified; R94.31 Abnormal electrocardiogram [ECG] [EKG]; I25.10 Atherosclerotic heart disease of native coronary artery without angina pectoris
CPT/HCPCS: 78452; 93017; 93018; 93306; A9502

== ENCOUNTER 2025-06-14 06:06 | Outpatient (CLI) | payer MEDICARE, SELFPAY ==
--- NOTE | 2025-06-14 | CA_ITS ---
APPROVED REPORT Exam: Pharmacologic Technologist: Francine Medina Ht: 5 ft 3 in Wt: 184 lbs BSA: 1.87 m2 HR: 53 bpm BP: 148/77 mmHg Rhythm: NSR Medical History Cardiac Risk Factors: Hyperlipidemia, HTN, FHX of CAD Stress Test Details HR Resting HR: 53 bpm Max Heart Rate (APMHR): 156 bpm Target HR (85% APMHR): 133 bpm Recovery HR: 67 bpm BP Resting BP: 148.0/77.0 mmHg Recovery BP: 149.0/84.0 mmHg ECG Resting ECG: NSR Stress ECG Conclusion During lexiscan pt experinced no symptoms. No symptoms. <1.5mm ST segment changes. Non diagnostic lexiscan stress. Electronically signed by : Maria Ines Abraham MD 06/15/2025 15:38:13
--- OUTSIDE RECORDS SUMMARY | 2025-06-14 06:11 | XMS_ITS | Continuity of Care Document ---
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 Education was provided on healthy nutrition, including a diet rich in fruits and vegetables, minimizing simple carbohydrates, salt, and saturated fats. Encouraged regular cardiovascular exercise such as walking at least 30 minutes daily, 5 times per week. Emphasized preventive health measures and educated pt on fall prevention and community-based lifestyle interventions to help reduce health risks and promote healthy living. Medicare Preventive Services Check List reviewed and printed for patient. [email or web address] Not available 05/14/2025 11:43:20 Plan of Treatment Reminders Order Date Submit Date Provider Last Modified By Organization Details Last Modified Time Details Appointments None recorded. Lab HbA1c (hemoglobin A1c), blood 2024 025 [facility], [address], [address], [place], [address], 5 08:25:39 CMP, serum or plasma 2024 025 [facility], [address], [address] [address], [place], [address], 5 08:25:38 lipid panel, serum 2024 025 [facility], [address], [address], [place], [address], 5 08:25:38 microalbumi n/creatinin e, mass ratio, urine 2024 [facility], [address] [facility], [place], [address], 13:14:04 CBC w/ auto diff 2024 025 [place] [facility], [address], [address], [place], [address], 5 08:25:37 Hepatitis C IgG Ab, qual, serum 2024 025 [place] [facility], [address], [address] [address], [place], [address], 5 08:25:40 gamma-gluta myl transferase (ggt), serum 2024 025 [place] [facility], [address], [place] [address], [place], [address], 5 08:25:40 vitamin D, 25-hydroxy, total, serum 2024 025 [place] [facility], [address], [address], [place], [address], 5 08:25:39 Referral orthopedic surgeon referral 2024 025 [place] Geovanni Demarco MD, [address] [place] [address] , [place], [address], 13:10:50 Procedures None recorded. Surgeries None recorded. Imaging None recorded. Medication Orders clopidogrel 75 mg tablet 2024 025 [facility] [place], [address], 12:21:25 Zithromax Z-Heriberto 250 mg tablet 2024 [facility] [address] [place], [address], 12:18:12 dexamethaso ne sodium phosphate 4 mg/mL injection solution 2024 025 [email or web address] Not available 12:40:00 pantoprazol e 40 mg tablet,jay yed release 2024 [facility] [address], [address] [place], [address], 12:21:24 rosuvastati n 20 mg tablet 2024 [facility] [address] [place], [address], 12:21:23 Patient TargetsNo targets recorded. Patient Instructions Encounter Date Encounter Id Patient Instructions Last Modified By Organization Details Last Modified Time 05/14/2025 [id number] advance directives: care instructions Not available 05/14/2025 12:14:20 learning about depression Not available 05/14/2025 12:14:21 preventing falls : care instructions Not available 05/14/2025 12:14:21 Acute Sinusitis: Care Instructions Not available 05/14/2025 12:18:06 medicare preventive services guide Not available 05/14/2025 12:14:20 last eye exam--3 months ago last dental exam-pt has dentures. 30 minutes spent with patient in review, examination, discussion, and coordination of care. CALL WITH CHANGES RTC OR GO TO ED IF SYMPTOMS CHANGE OR WORSEN DISCUSSED IMPORTANCE OF DIET AND EXERCISE ROUTINE HEALTH MAINTANENCE REVIEWED MEDS REVD WITH PATIENT TODAY, SIDE EFFECTS DISCUSSED AND PATIENT VOICES UNDERSTANDING OF THIS CHRONIC ISSUES ARE STABLE CONT CURRENT MEDICATIONS PERSCRIBED Not available 05/14/2025 12:20:04 CALL W CHANGES RTC OR ED IF SYMPTOMS CHANGE OR WORSEN KEEP NEXT INTERVAL CHECKUP Not available 05/14/2025 12:19:39 Reason for Referral Orthopedic Surgeon Referral for Pain of left knee joint Referring Physician: Anne Ospina, Family Medicine, Encounter Date: 05/14/2025 Results Created Date Observation Date Name Description Value Unit Range Abnormal Flag Note LastModifiedBy Organization Detail LastModifiedTime 05/14/20 25 05/14/2025 micro album in/cr eatin ine, mass ratio , urine Microalbumin 30mg Not Available [facility]ampabrianda herrmann [address], [address], 05/14/2025 12:13:44 05/14/20 25 05/14/2025 micro album in/cr eatin ine, mass ratio , urine Creatinine 100mg Not Available [facility] [address], [place], [address], 05/14/2025 12:13:44 05/14/20 25 05/14/2025 micro album in/cr eatin ine, mass ratio , urine Ratio <30mg normal Not Available [facility] [address], [place], [address], 05/14/2025 12:13:44 05/01/20 25 US, duple x, venou s, lower extre mity No observ ation record ed. [email or web address] [address] , [place], [address], 05/01/2025 14:58:09 05/01/20 25 XR, knee, 3 view No observ ation record ed. [email or web address] [place] (Centralized Scheduling) [address] [place] [address] [place], [address], 05/01/2025 14:59:53 Result Notes None recorded. Problems Name Problem SNOMED Code Status Onset Date Resolution Date Notes Provider Name and Address Organization Details Recorded Time Hypercholes terolemia 17573990 Active 2020 Henrietta Singletno null, [place] - [facility] 13:15:35 Bilateral cataracts 47523584 Active 2020 Henriettadavonte Singleton null, [place] - [facility] 13:19:11 Acute low back pain 366011218 Active 2020 Anne-Marie Washington, SNAG GRINDER [address], [place], [address], [place] - [facility] 14:39:12 Gastroesoph ageal reflux disease without esophagitis 590002751 Active 2020 Anupama Merritt null, [place] - [facility] 13:32:15 Coronary arterioscle rosis 83349297 Active 2020 Anupama Merritt null, [place] [facility] 13:35:49 Thrombocyto sis 5519118 Active 2021 Ali Raquel null, [place] - [facility] 2 12:26:46 Vitamin D deficiency 97044066 Active 2021 Ali Raquel null, [place] - [facility] 2 12:28:19 CT of abdomen abnormal 9812702491439 9107 Active 2021 Ali Raquel null, [place] - [facility] 2 21:34:27 Problem Notes None recorded. Procedures Surgical History Date Name Laterality Status Provider Name and Address Organization Details Recorded Time 05/14/20 25 Advance Care Planning completed Chano Grewal [place] - [facility] 05/14/2025 11:43:21 05/14/20 25 Functional Status Assessed completed Chano Grewal [place] - [facility] 05/14/2025 11:43:21 09/26/20 24 Punch Biopsy completed Anne Ospina PA-C [address], [place], [address], [place] [facility] 09/26/2024 10:54:42 02/02/20 23 cardiac catheterization completed Anupama Merritt [place] - [facility] 04/13/2023 15:51:21 Back Surgery completed Henrietta Singleton [place] - [facility] 08/13/2021 13:16:12 cholecystectomy completed Henrietta Singleton [place] [facility] 08/13/2021 13:16:21 Eye Surgery completed Henrietta Singleton [place] [facility] 08/13/2021 13:19:06 Imaging Results None recorded. Procedure Notes None recorded. Medical Equipment None Reported. Allergies Allergen ID Allergen Name Allergen Category Reaction Reaction Severity Criticality Documentation Date Start Date Code Code System Note Provider Name and Address Organization Details Recorded Time 337882 Aleve medicatio n Not available Not available Not available 08/13/2021 36818 1 RxNorm was takin keely payne ently . cause d stage 4 renal failu re acute ly. Ann-eMarie Washington, SNAG GRINDER [address], [place], [address], [place] - [facility] 14:25:01 39033 Levaquin medicatio n Not available Not available Not available 09/03/2016201499 2 RxNorm React ion: tendo n pain; Not Available [facility] 6 09:11:46 13488 nitroglyc delfin medicatio n Not available Not available Not available 09/03/20162014 4917 RxNorm React ion: extre me low BP; Not Available [facility] 6 09:11:47 80072 Excedrin medicatio n nausea Not available Not available 09/03/20162014 76684 0 RxNorm React ion: Extre me nause a; Not Available [facility] 6 09:27:38 57416 Keflex medicatio n rash Not available Not available 09/03/2016201416 7 RxNorm React ion: rash; Not Available [facility] 6 09:51:40 Medications Name Sig Start Date Stop Date Status Note LastModified by Organization Details LastModified Time cyclobenz aprine 10 mg tablet TAKE 1 TABLET BY MOUTH TWICE DAILY NEEDED FOR 10 DAYS 08/27 completed Not Available Not Available Not Available prednison e 10 mg tablet 2 tablets po qd x 5 days, then 1 tablet po qd for 5 days 04/30 completed Not Available Not Available Not Available doxycycli ne hyclate 100 mg capsule Take 1 capsule twice a day by oral route for 10 days. 04/30 completed Not Available Not Available Not Available clindamyc in HCl 300 mg capsule Take 1 capsule twice a day by oral route for 10 days. 09/26 completed Not Available Not Available Not Available azithromy herson 250 mg tablet TAKE 2 TABLETS BY MOUTH ON DAY 1, AND THEN TAKE 1 TABLET BY MOUTH ONCE A DAY ON DAY 2 THROUGH DAY 5 active Not Available Not Available No t Available hydrocodo ne 5 mg-acetam inophen 325 mg tablet TAKE 1 TABLET BY MOUTH EVERY 6 HOURS NEEDED FOR PENILE PAIN AFTER SURGERY 08/12 completed Not Available Not Available Not Available meloxicam 15 mg tablet take 1 tablet (15 mg) by oral route once daily 08/13 completed meloxica m 15 mg oral tablet;R ecorded Status: Recorded on: 01/17/20 3:00PM;U ser: colvinc Not Available Not Available Not Available Medrol (Heriberto) 4 mg tablets in a dose pack take as directed for 6 days 02/14 completed Not Available Not Available Not Available prednison e 20 mg tablet TAKE 1 TABLET BY MOUTH ONCE DAILY FOR 5 DAYS 04/30 completed Not Available Not Available Not Available isosorbid e mononitra te ER 30 mg tablet,ex tended release 24 hr 08/13 completed isosorbi de mononitr ate 30 mg oral tablet extended release 24 hr;Recor ded Status: Recorded on: 01/17/20 3:09PM;U ser: colvinc Not Available Not Available Not Available amlodipin e 2.5 mg tablet TAKE 1 TABLET BY MOUTH ONCE DAILY 02/14 completed Not Available Not Available Not Available clopidogr el 75 mg tablet Take 1 tablet by mouth once daily active Not Available Not Available No t Available sulfameth oxazole 800 mg-trimet hoprim 160 mg tablet TAKE 1 TABLET BY MOUTH EVERY 12 HOURS FOR 7 DAYS 04/30 completed Not Available Not Available Not Available triamcino lone acetonide 0.1 % topical cream apply a thin layer to the affected area(s) by topical route 2 times per day 08/13 completed triamcin olone acetonid e 0.1 % topical cream;Pr escribe Status: Prescrib ed on: 07/09/20 15 11:31AM; User: steven; Pharmacy Verified : 07/09/20 15 11:31AM Not Available Not Available Not Available Zantac 150 mg tablet take 1 tablet (150 mg) by oral route 2 times per day 08/13 completed Zantac 150 mg oral tablet;R ecorded Status: Recorded on: 06/14/20 12 9:43AM;U ser: haym Not Available Not Available Not Available bisoprolo l fumarate 5 mg tablet Take 1 tablet every day by oral route. 05/14 completed Not Available Not Available Not Available pantopraz ole 40 mg tablet,de layed release Take 1 tablet every day by oral route for 90 days. 2024 active Not Available Not Available Not Avai lable Cipro 500 mg tablet take 1 tablet (500 mg) by oral route 2 times per day for 30 days 06/22 completed Cipro 500 mg oral tablet;R ecorded Status: Recorded on: 06/14/20 12 10:06AM; Disconti nued Status: Disconti nued on: 06/22/20 12 1:25PM;U ser: grossert ;Est. Completi on: 07/14/20 12;Indic ation: Epididym itis - (604.90) ;Printed : 06/14/20 12 Not Available Not Available Not Available Nizoral 200 mg tablet take 1 tablet by oral route daily for 30 days 07/15 completed Nizoral 200 mg oral tablet;R ecorded Status: Recorded on: 05/21/20 10 2:12PM;D iscontin ued Status: Disconti nued on: 07/15/20 11 4:53PM;U ser: grossert ;Est. Completi on: 06/20/20 10;Indic ation: Cutaneou s Candidia sis - (01.1123 00);Prin brandy: 05/21/20 10 Not Available Not Available Not Available betametha sone dipropion ate 0.05 % topical cream apply a thin layer to the affected area(s) by topical route 2 times per day 07/04 completed betameth asone dipropio milton 0.05 % topical cream;Pr escribe Status: Prescrib ed on: 02/05/20 15 9:23AM;D iscontin ued Status: Disconti nued on: 07/04/20 15 4:20PM;U ser: steven; Est. Completi on: 04/05/20 15;Pharm acyVomi ied: 02/05/20 15 9:23AM Not Available Not Available Not Available Tylenol 325 mg tablet take 2 tablets (650 mg) by oral route every 6 hours as needed 03/22 completed Tylenol 325 mg oral tablet;P rescribe Status: Prescrib ed on: 08/18/20 15 3:17PM;D iscontin ued Status: Disconti nued on: 03/22/20 16 1:58PM;U ser: cecelian;Ruby tInez Completi on: 09/17/20 15;Pharm acKaela ied: 08/18/20 15 3:17PM Not Available Not Available Not Available diclofena c sodium 75 mg tablet,de layed release Take 1 tablet twice a day by oral route. 04/13 completed Not Available Not Available Not Available pravastat in 20 mg tablet TAKE 1 TABLET (20 MG) BY MOUTH ONCE DAILY 08/12 completed Not Available Not Available Not Available Levaquin 500 mg tablet take 1 tablet (500 mg) by oral route once daily for 14 days 07/26 completed Levaquin 500 mg oral tablet;R ecorded Status: Recorded on: 06/22/20 12 2:05PM;D iscontin ued Status: Disconti nued on: 07/26/20 12 11:37AM; User: marco BrownEst. Completi on: 08/17/20 12;Indic ation: Epididym itis - (604.90) ;Printed : 06/22/20 12 Not Available Not Available Not Available dexametha sone sodium phosphate 4 mg/mL injection solution Inject 1 mL every day by intramus cular route for 1 day. 2024 active Not Available Not Available Not Avai lable testoster one cypionate 200 mg/mL intramusc ular oil inject 1 millilit er (200 mg) by intramus cular route every 2 weeks 03/22 completed testoste geronimo cypionat e 200 mg/mL intramus cular oil;Rubén rded Status: Recorded on: 07/04/20 15 4:35PM;D iscontin ued Status: Disconti nued on: 03/22/20 16 2:25PM;U ser: grayn;Es t. Completi on: 10/02/20 15 Not Available Not Available Not Available Anusol-HC 25 mg rectal supposito ry insert 1 supposit ory by rectal route 4 times a day for 15 days 06/14 completed Anusol-H C 25 mg rectal supposit ory;Rubén rded Status: Recorded on: 07/15/20 11 5:32PM;D iscontin ued Status: Disconti nued on: 06/14/20 12 9:43AM;U ser: grossert ;Est. Completi on: 01/11/20 12;Indic ation: Perianal Irritati on - (5694 );Prin brandy: 07/15/20 11 Not Available Not Available Not Available ketorolac 60 mg/2 mL intramusc ular solution Inject 2 mL every day by intramus cular route for 1 day. 08/27 completed Not Available Not Available Not Available brompheni ramine-ps eudoephed rine-DM 2 mg-30 mg-10 mg/5 mL oral syrup TAKE 10 ML BY MOUTH TWICE DAILY FOR 10 DAYS 04/30 completed Not Available Not Available Not Available amoxicill in 875 mg-potass ium clavulana te 125 mg tablet TAKE 1 TABLET BY MOUTH EVERY 12 HOURS FOR 10 DAYS 08/12 completed Not Available Not Available Not Available Vitamin D3 25 mcg (1,000 unit) capsule TAKE 1 CAPSULE BY MOUTH ONCE DAILY 08/12 completed Not Available Not Available Not Available Testim 50 mg/5 gram (1 %) transderm al gel apply 100 mg by topical route once daily (2 tubes = 100 mg) 07/20 completed Testim 50 mg/5 gram (1 %) transder mal gel;Rubén rded Status: Recorded on: 03/22/20 16 2:25PM;U ser: grayn;Es t. Completi on: 07/20/20 16;Indic ation: Androgen Deficien cy - (03.2599 ) Not Available Not Available Not Available rosuvasta tin 10 mg tablet TAKE 1 TABLET BY MOUTH ONCE DAILY 02/14 completed Not Available Not Available Not Available rosuvasta tin 20 mg tablet TAKE 1 TABLET BY MOUTH ONCE DAILY active Not Available Not Available No t Available ketorolac 0.4 % eye drops active Not Available Not Available Not Available syringe with needle, safety 3 mL 22 gauge x 1 use with testoste geronimo every 2 weeks 08/03 completed syringe with needle, safety 3 mL 22 gauge x 1 miscella neous syringe; Recorded Status: Recorded on: 07/04/20 15 4:35PM;U ser: ys;Es t. Razai on: 08/03/20 15 Not Available Not Available Not Available Bactrim one bid 06/28 completed bactrim ds;Recor ded Status: Recorded on: 06/18/20 16 8:50PM;U ser: fanta; Est. Completi on: 06/28/20 16;Indic ation: uri - (-5) Not Available Not Available Not Available Phenergan W/Codeine one tsp qid prn 06/25 completed phenerga n with codiene standard ;Recorde d Status: Recorded on: 06/18/20 16 8:50PM;U ser: fanta; Est. Completi on: 06/25/20 16;Indic ation: cough - (-5) Not Available Not Available Not Available ranolazin e ER 500 mg tablet,ex tended release,1 2 hr active Not Available Not Available Not Available CeraVe topical cream apply to affected area(s) by topical route 4 times a day 02/16 completed CeraVe topical cream;Pr escribe Status: Prescrib ed on: 01/17/20 15 3:47PM;U ser: cecelian;Es t. Completi on: 02/17/20 15;Pharm acyVerif ied: 01/17/20 15 3:47PM Not Available Not Available Not Available ProAir HFA 90 mcg/actua tion aerosol inhaler inhale 1 - 2 puffs (90 - 180 mcg) by inhalati on route every 6 hours as needed 03/22 completed ProAir HFA 90 mcg/actu ation inhalati on HFA aerosol inhaler; Recorded Status: Recorded on: 10/14/20 15 10:51AM; Disconti nued Status: Disconti nued on: 03/22/20 16 1:58PM;U ser: steven; Printed: 10/14/20 15 Not Available Not Available Not Available fenofibri c acid 35 mg tablet take 1 tablet (35 mg) by oral route once daily 08/13 completed fenofibr ic acid 35 mg oral tablet;R ecorded Status: Recorded on: 01/17/20 15 3:00PM;U ser: colvinc Not Available Not Available Not Available Suprep Bowel Prep Kit 17.5 gram-3.13 gram-1.6 gram oral solution 08/12 completed Not Available Not Available Not Available Brilinta 90 mg tablet TAKE 1 TABLET BY MOUTH TWICE DAILY 05/25 completed Not Available Not Available Not Available Voltaren Arthritis Pain 1 % topical gel APPLY 2 GRAMS TO THE AFFECTED AREA(S) BY TOPICAL ROUTE 4 TIMES PER DAY 2024 active Not Available Not Available Not Avai lable Vitals Date Recorded Body height Body mass index (BMI) Body weight Body temperature Respiratory rate Heart rate Oxygen saturation Oxygen saturation in Arterial blood by Pulse oximetry Systolic And Diastolic Provider Name and Address Organization Details Last Updated DateTime 5 162.56 cm 30.9 kg/m2 92683.6 3 g 97.5 [degF] 14 /min 54 /min 98 % 98 % 124/80 mm[Hg] Chano Grewal [place] - [facility] 5 11:42:04 Social History Question Answer Notes LastModified by Organizat ion Details LastModified Time Tobacco Smoking Status Former Smoker quit 27 years ago Henrietta londono [place] - [facility] 08/13/2021 13:18:23 Are You Blind Or Do You Have Difficulty Seeing? Yes Information not available 08/13/2021 What Is Your Level Of Caffeine Consumption? Heavy [email or web address] Information not available 08/13/2021 In The 14 Days Before Symptom Onset, Have You Had Close Contact With A [facility] [place] COVID-19 While That Case Was Ill? No Information not available 02/15/2024 In The 14 Days Before Symptom Onset, Have You Had Close Contact With A Person Who Is Under Investigation For COVID-19 While That Person Was Ill? No Information not available 02/15/2024 Have You Been To An Area Known To Be High Risk For COVID-19? No Information not available 02/15/2024 Are You Deaf Or Do You Have Serious Difficulty Hearing? Yes Information not available 08/13/2021 What Type Of Diet Are You Following? REGULAR Information not available 09/09/2021 Have You Processed Blood Or Body Fluids From An Ebola Virus Disease Patient Without Appropriate PPE? No Information not available 02/15/2024 Do You Reside In Or Have You Traveled To An Area Where Ebola Virus Transmission Is Active? No Information not available 02/15/2024 What Is The Highest Grade Or Level Of School You Have Completed Or The Highest Degree You Have Received? [id number] Information not available 09/09/2021 Have There Been Any Changes To Your Family Or Social Situation? No Information no t available 09/09/2021 What Is The Fluoride Status Of Your Home? Fluoridated Information not available 09/09/2021 When Did You Quit Smoking? 16+yearssinsaba mehta Information not available 08/13/2021 Have You Recently Or Are You Planning To Travel To An Area With Zika Virus? No Information not available 02/15/2024 What Was The Date Of Your Most Recent Tobacco Screening? 05/14/2025 [email or web address] Information not available 05/14/2025 How Many Children Do You Have? 4 4 Boys [email or web address] Information not available 08/13/2021 What Is Your Current Pack Years? [email or web address] [email or web address] Information not available 04/13/2023 Do You Use Protection During Sex? No Information not available 04/13/2023 Do You Use Protection Against STDs? No Information not available 04/13/2023 What Is Your Relationship Status? [email or web address] Information not available 08/13/2021 Are You Sexually Active? Yes Information not available 04/13/2023 Do You Have Smoke And Carbon Monoxide Detectors In Your Home? Yes Information not available 09/09/2021 At What Age Did You Start Smoking Tobacco? 13 [email or web address] Information not available 08/13/2021 Are You Passively Exposed To Smoke? No Information no t available 09/09/2021 How Much Tobacco Do You Smoke? No Information not available 02/15/2024 Has Tobacco Cessation Counseling Been Provided? No Information not available 09/09/2021 How Many Years Have You Smoked Tobacco? 30 Information not available 04/13/2023 Do You Have Difficulty Walking Or Climbing Stairs? No [email or web address] Information not available 08/13/2021 What Contraceptive Method Was Reported At Start Of This Visit? None Information not available 04/13/2023 What Contraceptive Method Was Reported At End Of This Visit? None Information not available 04/13/2023 Do You Want To Talk About Contraception Or Prevention During Your Visit Today? No - This Question Does Not Apply To Me/I Prefer Not To Answer Information not available 04/13/2023 Sex: Male Functional Status Question Answer Note LastModified by Organizat ion Details LastModified Time Do you use any illicit or recreational drugs? No Information not available 09/09/2021 Do you or have you ever used any other forms of tobacco or nicotine? Yes Information not available 09/09/2021 What is your level of alcohol consumption? None [email or web address] Information not available 08/13/2021 Do you or have you ever used smokeless tobacco? Former smokeless tobacco user Information not available 09/09/2021 Are you currently employed? No Information not available 09/09/2021 Do you have transportation difficulties? No [email or web address] Information not available 08/13/2021 Are you able to walk? YESWOREST [email or web address] Information not available 08/13/2021 Do you have difficulty doing errands alone? No [email or web address] Information not available 08/13/2021 Are you able to care for yourself? Yes [email or web address] Information n ot available 08/13/2021 Do you have difficulty dressing or bathing? No [email or web address] Information not available 08/13/2021 Do you or have you ever used e-cigarettes or vape? Never used electronic cigarettes Information not available 09/09/2021 What is your exercise level? None [email or web address] Information not available 09/09/2021 Mental Status Question Answer Note LastModified by Organizat ion Details LastModified Time Do you feel stressed (tense, restless, nervous, or anxious, or unable to sleep at night)? [id number] Information not available 09/09/2021 Do you have difficulty concentrating, remembering or making decisions? No [email or web address] Information no t available 08/13/2021 Family History Relationship Description Onset Age of this Age Resolved Age Notes LastModified by Organization Details LastModified Time Mother Heart disease [email or web address] Not available 08/13 13:17:42 Mother Diabetes mellitus [email or web address] Not available 08/13 13:17:32 Father Heart disease [email or web address] Not available 08/13 13:17:45 Medical History No medical history recorded. Immunizations Vaccine Type Date Status Note Provider Nam e and Address Organization Details Recorded Time Tdap 09/27/2012 completed Not Available [facility] 12/29/2019 02:21:29 Past Encounters Encounter ID Performer Location Encounter Start Date Encounter Closed Date Diagnosis/Indication Diagnosis SNOMED-CT Code Diagnosis ICD10 Code Diagnosis Note [id number] BRAD Sutton [address] [address] 04/30/2025 15:44:11 04/30/2025 16:12:41 Pain of left knee joint [id number] 78977 M25.562 pt has tried lidocain patch Pain in ri ght lower limb [id number] M79.604 moist heat on right calf. Long-term current use of drug therapy [id number] Z79.899 chronic conditions are stable. [id number] BRAD Sutton [address] [address] 05/14/2025 11:32:53 05/14/2025 12:27:26 Adult health examination [id number] Z00.00 Depression screening 171 090425 Z13.31 A depression screening was completed via a standardiz ed screening tool. 5 minutes were spent discussing depression screening results and risk factors. Examinatio n of blood pressure 906791406 Z01.30 Diet education 98409592 Z71.3 Counseling 472366144 Z71 .82 Exercise counseling . Patient encouraged to exercise 30 minutes 5 days a week. At [facility] ed risk for falls 595605830 Z91.81 STEADI FAST screening score of . Advance care planning 71 2232107 Z71.89 Viral scre ening status 978139780 Z11.59 Bilateral cataracts 9572 2003 H26.9 he had surgery for this and had them removed. Coronary arteriosclerosis 20411650 I25.[address] Peterson. He last saw him 11 months ago. Gastroesop hageal reflux disease without esophagitis 664278346 K21.9 stable. Hypercholesterolemia 136 32960 E78.00 we will get chol today as well. Thrombocytosis 4184763 D 75.839 we will get cbc. Vitamin D deficiency 347 00906 E55.9 Taking med ication for chronic disease [id number] 00572 Z79.899 chronic conditions are stable.. Acute sinusitis 18694054 J01.80 went over to watch being in sun. probiotics . Prediabetes 104817028 R7 3.03 Gastroesop hageal reflux disease 657603740 K21.9 Pain of le ft knee joint [id number] 00965 M25.562 pt has tried lidocain patch. ot is back and he wants referral to dr demarco. Health Concerns Section Related Observation LastModified by Organization Detai ls LastModified Time None Recorded Concern Status LastModified by Organization Details LastModified Time None Recorded Payers Encounter Date Sequence Insurance Name Policy Number Policy Nash Covered Member ID Nash Member ID Guarantor Name 05/14/2025 1 [place] [employer] [place] [employer] (MEDICARE REPLACEMENT HMO) [id number] Marco A Bahena [id number] Marco A Bahena Notes Date Note Type Note Provider Name and Address Organization Details Recorded Time 05/14/2025 text/html Medicare Annual Wellness VisitReported bypatient.Diet and Nutrition:healthy diet Fracture Risk:no history of fractures; no recent explained fracture; no sudden unexplained fractures; no previous musculoskeletal injuries Physical Activity:exercises on a regular basis; recent increase in physical activity; good physical condition Depression Risk:never feels sad, empty, or tearful; no loss of interest in activities; no significant changes in weight; no sleep disturbances or insomnia; no agitation; no loss of energy; no feelings of worthlessness or guilt; no thoughts of suicide; no history of depression; no history of mood disorders Orientation:no disorientation to time; no disorientation to date; no disorientation to place Concentration and Memory:no decreased concentrating ability; no memory lapses or loss; does not forget words Speech/Motor difficulties:no speech difficulties; no difficulty expressing formulated concepts; no difficulty with fine manipulative tasks; no difficulty writing/copying; no slowed reaction time; does not knock things over when trying to pick them up Hearing:no loss of hearing Vision:no vision problems Activities of Daily Living:able to bathe with limited or no assistance; able to contol urination and bowels; able to dress with limited or no assistance; able to feed self with limited or no assistance; able to get out of chair or bed with limited or no assistance; able to groom with limited or no assistance; able to toilet with limited or no assistance Instrumental Activities of Daily Living:able to do house work with limited or no assistance; able to grocery shop with limited or no assistance; able to manage medications with limited or no assistance; able to manage money with limited or no assistance; able to prepare meals with limited or no assistance; able to use the phone with limited or no assistance Falls Risk Assessment:no frequent falls while walking; no fall in the past year; no fall since last visit; no dizziness/vertigo Home Safety:no unsafe sheree hazzards; no unsafe stairs; no unsafe gas appliances; working smoke/CO detectors; wears protective head gear for biking/high velocity; use of seatbelts; practicing 'safer sex'; no vision or hearing loss while driving; no fire arms; has hand bars in the bathroom/shower; good lighting in the home Patient is here for wellness exam.Pt has head congestion. no headache. no ear pressure. pos sore throat and PND. pos cough that is dry. nasal drainage is clear. eye itches. NO N/V/F/D. no new SOB.Pt is also having left knee pain. He has had xrays done. Anne Ospina PA-C [address], [place], [address], [place] - [facility] 05/14/2025 12:25:07
--- OUTSIDE RECORDS SUMMARY | 2025-06-14 06:11 | XMS_ITS | Data Portability ---
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 [email or web address] Not available 05/14/2025 11:43:20 Plan of Treatment Reminders Order Date Submit Date Provider Last Modified By Organization Details Last Modified Time Details Appointments None recorded. Lab HbA1c (hemoglobin A1c), blood 2024 025 PETER [facility], [address], Sergio [address], [place], [address], 5 08:25:39 CMP, serum or plasma 2024 025 PETER [facility], [address], [address], [place], [address], 5 08:25:38 lipid panel, serum 2024 025 PETER [facility], [address], [address], [place], [address], 5 08:25:38 microalbumi n/creatinin e, mass ratio, urine [address] [facility], [address] [facility], [place], [address], 5 13:14:04 CBC w/ auto diff 2024 025 PETER [facility], [address], [address], [place], [address], 5 08:25:37 Hepatitis C IgG Ab, qual, serum 2024 025 AUBURN [facility], [address], [address], [place], [address], 5 08:25:40 gamma-gluta myl transferase (ggt), serum 2024 025 AUBURN [facility], [address], [address], [place], [address], 5 08:25:40 vitamin D, 25-hydroxy, total, serum 2024 025 AUBURN [facility], [address], [address] [address], [place], [address], 5 08:25:39 surgical pathology study 2023 024 AUBURN [facility], [address], [address], [place], [address], 4 12:13:14 Referral orthopedic surgeon referral 2024 025 PETER Demarco MD, [address] [place] [address] [place], [address], 5 13:10:50 Procedures None recorded. Surgeries None recorded. Imaging XR, knee, 3 view 2024 025 [facility] [address] [facility] , [place], [address], 11:38:15 US, duplex, venous, lower extremity 2024 [facility], [address] [place] [address] , [place], [address], 08:12:24 Medication Orders clopidogrel 75 mg tablet 2024 [facility], [address] [place], [address], 5 12:21:25 Zithromax Z-Heriberto 250 mg tablet 2024 025 [facility], [address] [place], [address], 12:18:12 dexamethaso ne sodium phosphate 4 mg/mL injection solution 2024 025 [email or web address] 45 Not available 12:40:00 pantoprazol e 40 mg tablet,jay yed release 2024 [facility], [address] [place], [address], 5 12:21:24 rosuvastati n 20 mg tablet 2024 025 [facility], [address] [place], [address], 5 12:21:23 Voltaren Arthritis Pain 1 % topical gel 2024 [facility], [address] [place], [address], 5 16:07:10 doxycycline hyclate 100 mg capsule 2024 025 [facility], [address] [place], [address], 5 15:50:19 prednisone 10 mg tablet 2024 025 [facility], [address] [place], [address], 5 15:50:37 Zithromax Z-Heriberto 250 mg tablet [email or web address] [place] [address] Pharm[address], [address] [place], [address], 5 14:32:34 pantoprazol e 40 mg tablet,jay yed release 2023 024 [facility], [address] [place], [address], 4 10:56:12 Patient TargetsNo targets recorded. Patient Instructions Encounter Date Encounter Id Patient Instructions Last Modified By Organization Details Last Modified Time 09/26/2024 [id number] CALL W CHANGES RTC OR ED IF SYMPTOMS CHANGE OR WORSEN KEEP NEXT INTERVAL CHECKUP Not available 09/26/2024 10:55:23 10/03/2024 [id number] sore throat: car e instructions Not available 10/03/2024 16:10:01 CALL W CHANGES RTC OR ED IF SYMPTOMS CHANGE OR WORSEN KEEP NEXT INTERVAL CHECKUP Not available 10/03/2024 16:10:06 12/20/2024 [id number] CALL W CHANGES RTC OR ED IF SYMPTOMS CHANGE OR WORSEN KEEP NEXT INTERVAL CHECKUP CONT CHRONIC MEDS PERSCRIBED CHRONIC ISSUES ARE STABLE DISCUSSED NATURAL AND EXPECTED COURSE OF THIS DIAGNOSIS AND NEED TO ALERT ME IF SYMPTOMS DO NOT FOLLOW EXPECTED COURSE, OR IF ANY WORSEN aappelman Not available 12/20/2024 14:51:07 04/30/2025 [id number] CALL W CHANGES RTC OR ED IF SYMPTOMS CHANGE OR WORSEN KEEP NEXT INTERVAL CHECKUP Not available 04/30/2025 16:07:13 05/14/2025 [id number] advance directives: care instructions Not available 05/14/2025 [...] Abnormal Flag Note LastModifiedBy Organization Detail LastModifiedTime 09/26/2009/28/2024 PATHO LOGPaddy rajput Mater ial submi tted: . EYEBR OW - LEFT EYEBR OW. Modif iers: left Not Available [facility] ([facility]) [address] [place], [address], 09/28/2024 12:13:14 09/26/2009/28/2024 PATHO LOGPaddy rajput Clini scotty histo ry: . LEFT EYEBR OW Not Available [facility] ([facility]) [address] [place], [address], 09/28/2024 12:13:14 09/26/20 24 09/28/2024 PATHO LOGY REPOR T . Commen t Diagn osis: IRRIT ATED SEBOR RHEIC KERAT OSIS. SMI 09/28 0848 Local Not Available [facility] ([facility]) [address] [place], [address], 09/28/2024 12:13:14 09/26/20 24 09/28/2024 PATHO LOGY REPOR T . Commen t Elect michael rush chico d: . Viktoriya MD, [place] topat holog ist Not Available [facility] ([facility]) [address] [place], [address], 09/28/2024 12:13:14 09/26/20 24 09/28/2024 PATHO LOGY REPOR T . Commen t Gross descr iptio n: . 1 Conta iner, forma jose-f illed , label ed with patie nt ident ifica tion. LEFT EYEBR OW: 1 BIOPS Y OF DECKER SKIN MEASU RING 0.4 X 0.3 X 0.2 CM. ON THE SURFA CE IS A RAISE D DECKER-B ROWN 0.4 CM LESIO N. THE LESIO N APPEA RS TO INVOL VE THE TIFFANY N. THE SURGI SCOTTY TIFFANY N IS INKED BLUE. IT IS SUBMI TTED ENTIR PAULA IN CASSE TTE(S ) A1. LYNNETTE/K YE 09/27 0625 Local Not Available [facility] ([facility]) [address] [facility], [place], [address], 09/28/2024 12:13:14 09/26/20 24 09/28/2024 PATHO LOGY REPOR T . Commen t Patho logis t provi ded ICD-1 0: L82.1 Not Available [facility] ([facility]) [address] [facility], [place], [address], 09/28/2024 12:13:14 09/26/20 24 09/28/2024 PATHO LOGY REPOR T . Commtrish t CPT . 46470 1 Not Available [facility] ([facility]) [address] [facility], [place], [address], 09/28/2024 12:13:14 05/14/20 25 05/15/2025 CBC WITH DIFFE RENTI AL/PL ATELE T WBC 9.1 x10e3 /uL 3.4-10 .8 normal Not Available [facility] ([facility]) [address] [facility], [place], [address], 05/15/2025 08:25:37 05/14/20 25 05/15/2025 CBC WITH DIFFE RENTI AL/PL ATELE T RBC 4.92 x10e6 /uL 4.14-5 .80 normal Not Available [facility] ([facility]) [address] [facility], [place], [address], 05/15/2025 08:25:37 05/14/20 25 05/15/2025 CBC WITH DIFFE RENTI AL/PL ATELE T hemoglobin 14.4 g/dL 13.0-1 7.7 normal Not Available [facility] ([facility]) [address] [place], [address], 05/15/2025 08:25:37 05/14/20 25 05/15/2025 CBC WITH DIFFE RENTI AL/PL ATELE T hematocrit 45.3 % 37.5-5 1.0 normal Not Available [facility] ([facility]) [address] [facility], [place], [address], 05/15/2025 08:25:37 05/14/20 25 05/15/2025 CBC WITH DIFFE RENTI AL/PL ATELE T MCV 92 fL 79-97 normal Not Available [facility] ([facility]) [address] [facility], [place], [address], 05/15/2025 08:25:37 05/14/20 25 05/15/2025 CBC WITH DIFFE RENTI AL/PL ATELE T MCH 29.3 pg 26.6-3 3.0 normal Not Available [facility] ([facility]) [address] [facility], [place], [address], 05/15/2025 08:25:37 05/14/20 25 05/15/2025 CBC WITH DIFFE RENTI AL/PL ATELE T MCHC 31.8 g/dL 31.5-3 5.7 normal Not Available [facility] ([facility]) [address] [place], [address], 05/15/2025 08:25:37 05/14/20 25 05/15/2025 CBC WITH DIFFE RENTI AL/PL ATELE T RDW 13.8 % 11.6-1 5.4 Not Available [facility] ([facility]) [address] [facility], [place], [address], 05/15/2025 08:25:37 05/14/20 25 05/15/2025 CBC WITH DIFFE RENTI AL/PL ATELE T platelets 458 x10e3 /uL 150-45 0 above high normal Not Available [facility] ([facility]) [address] [place], [address], 05/15/2025 08:25:37 05/14/20 25 05/15/2025 CBC WITH DIFFE RENTI AL/PL ATELE T neutrophils 39 % not estab. normal Not Available [facility] ([facility]) [address] [facility], [place], [address], 05/15/2025 08:25:37 05/14/20 25 05/15/2025 CBC WITH DIFFE RENTI AL/PL ATELE T lymphs 43 % not estab. normal Not Available [facility] ([facility]) [address] [facility], [place], [address], 05/15/2025 08:25:37 05/14/20 25 05/15/2025 CBC WITH DIFFE RENTI AL/PL ATELE T monocytes 11 % not estab. normal Not Available [facility] ([facility]) [address] [facility], [place], [address], 05/15/2025 08:25:37 05/14/20 25 05/15/2025 CBC WITH DIFFE RENTI AL/PL ATELE T eos 6 % not estab. normal Not Available [facility] ([facility]) [address] [facility], [place], [address], 05/15/2025 08:25:37 05/14/20 25 05/15/2025 CBC WITH DIFFE RENTI AL/PL ATELE T basos 1 % not estab. 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 0 normal Not Available [facility] ([facility]) [address] [place], [address], 05/15/2025 08:25:37 05/14/20 25 05/15/2025 CBC WITH DIFFE RENTI AL/PL ATELE T lymphs (absolute) 3.8 x10e3 /uL 0.7-3. 1 above high normal Not Available [facility] ([facility]) [address] [facility], [place], [address], 05/15/2025 08:25:37 05/14/20 25 05/15/2025 CBC WITH DIFFE RENTI AL/PL ATELE T monocytes(ab solute) 1.0 x10e3 /uL 0.1-0. 9 above high normal Not Available [facility] ([facility]) [address] [place], [address], 05/15/2025 08:25:37 05/14/20 25 05/15/2025 CBC WITH DIFFE RENTI AL/PL ATELE T eos (absolute) 0.6 x10e3 /uL 0.0-0. 4 above high normal Not Available [facility] ([facility]) [address] [place], [address], 05/15/2025 08:25:37 05/14/20 25 05/15/2025 CBC WITH DIFFE RENTI AL/PL ATELE T baso (absolute) 0.1 x10e3 /uL 0.0-0. 2 normal Not Available [facility] ([facility]) [address] [place], [address], 05/15/2025 08:25:37 05/14/20 25 05/15/2025 CBC WITH DIFFE RENTI AL/PL ATELE T immature granulocytes 0 % not estab. Not Available [facility] ([facility]) [address] [place], [address], 05/15/2025 08:25:37 05/14/20 25 05/15/2025 CBC WITH DIFFE RENTI AL/PL ATELE T immature grans (abs) 0.0 x10e3 /uL 0.0-0. 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 METAB OLIC PANEL (14) glucose 75 mg/dL 70-99 normal Not Available [facility] ([facility]) [address] [place], [address], 05/15/2025 08:25:38 05/14/20 25 05/15/2025 COMP. METAB OLIC PANEL (14) BUN 14 mg/dL 8-27 normal Not Available [facility] ([facility]) [address] [place], [address], 05/15/2025 08:25:38 05/14/20 25 05/15/2025 COMP. METAB OLIC PANEL (14) creatinine 1.22 mg/dL 0.76-1 .27 normal Not Available [facility] ([facility]) [address] [place], [address], 05/15/2025 08:25:38 05/14/20 25 05/15/2025 COMP. METAB OLIC PANEL (14) eGFR 66 mL/mi n/1.7 3 >59 normal Not Available [facility] ([facility]) [address] [place], [address], 05/15/2025 08:25:38 05/14/20 25 05/15/2025 COMP. METAB OLIC PANEL (14) BUN/creatini ne ratio 11 10-24 normal Not Available [facility] ([facility]) [address] [place] [place], [address], 05/15/2025 08:25:38 05/14/20 25 05/15/2025 COMP. METAB OLIC PANEL (14) sodium 139 mmol/ L 134-14 4 normal Not Available [facility] ([facility]) [address] [facility], [place], [address], 05/15/2025 08:25:38 05/14/20 25 05/15/2025 COMP. METAB OLIC PANEL (14) potassium 4.4 mmol/ L 3.5-5. 2 normal Not Available [facility] ([facility]) [address] [place], [address], 05/15/2025 08:25:38 05/14/20 25 05/15/2025 COMP. METAB OLIC PANEL (14) chloride 101 mmol/ L 96-106 normal Not Available [facility] ([facility]) [address] [place], [address], 05/15/2025 08:25:38 05/14/20 25 05/15/2025 COMP. METAB OLIC PANEL (14) carbon dioxide, total 23 mmol/ L 20-29 normal Not Available [facility] ([facility]) [address] [place], [address], 05/15/2025 08:25:38 05/14/20 25 05/15/2025 COMP. METAB OLIC PANEL (14) calcium 10.4 mg/dL 8.6-10 .2 above high normal Not Available [facility] ([facility]) [address] [place], [address], 05/15/2025 08:25:38 05/14/20 25 05/15/2025 COMP. METAB OLIC PANEL (14) protein, total 7.5 g/dL 6.0-8. 5 normal Not Available [facility] ([facility]) [address] [place] [place], [address], 05/15/2025 08:25:38 05/14/20 25 05/15/2025 COMP. METAB OLIC PANEL (14) albumin 4.7 g/dL 3.9-4. 9 normal Not Available [facility] ([facility]) [address] [place] [place], [address], 05/15/2025 08:25:38 05/14/20 25 05/15/2025 COMP. METAB OLIC PANEL (14) globulin, total 2.8 g/dL 1.5-4. 5 Not Available [facility] ([facility]) [address] [place], [address], 05/15/2025 08:25:38 05/14/20 25 05/15/2025 COMP. METAB OLIC PANEL (14) bilirubin, total 0.2 mg/dL 0.0-1. 2 normal Not Available [facility] ([facility]) [address] [place] [place], [address], 05/15/2025 08:25:38 05/14/20 25 05/15/2025 COMP. METAB OLIC PANEL (14) alkaline phosphatase 67 IU/L 44-121 normal Not Available [facility]) [address] [place] [place], [address], 05/15/2025 08:25:38 05/14/20 25 05/15/2025 COMP. METAB OLIC PANEL (14) AST (SGOT) 27 IU/L 0-40 normal Not Available [facility] ([facility]) [address] [place], [address], 05/15/2025 08:25:38 05/14/20 25 05/15/2025 COMP. METAB OLIC PANEL (14) ALT (SGPT) 6 IU/L 0-44 normal Not Available [facility] ([facility]) [address] [place], [address], 05/15/2025 08:25:38 05/14/20 25 05/15/2025 LIPID PANEL cholesterol, total 100 mg/dL 100-19 9 normal Not Available [facility] ([facility]) [address] [place], [address], 05/15/2025 08:25:38 05/14/20 25 05/15/2025 LIPID PANEL triglyceride s 182 mg/dL 0-149 above high normal Not Available [facility] ([facility]) [address] [place], [address], 05/15/2025 08:25:38 05/14/20 25 05/15/2025 LIPID PANEL HDL cholesterol 36 mg/dL >39 below low normal Not Available [facility] ([facility]) [address] [place], [address], 05/15/2025 08:25:38 05/14/20 25 05/15/2025 LIPID PANEL VLDL cholesterol scotty 30 mg/dL 5-40 Not Available [facility] ([facility]) [address] [place], [address], 05/15/2025 08:25:38 05/14/20 25 05/15/2025 LIPID PANEL LDL chol calc ([facility]) 34 mg/dL 0-99 Not Available [facility] ([facility]) [address] [place], [address], 05/15/2025 08:25:38 05/14/20 25 05/15/2025 LIPID PANEL LDL calc 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 6 above high normal Predi abete s: 5.7 - 6.4 Diabe jaz: >6.4 Glyce ami contr ol for adult s with diabe jaz: <7.0 Not Available [facility] ([facility]) [address] [facility], [place], [address], 05/15/2025 08:25:39 05/14/2005/15/2025 VITAM IN D, 25-HY DROXY vitamin D, 25-hydroxy 30.9 NG/mL 30.0-1 00.0 Vitam in D defic iency has been defin ed by the Insti tute of Medic ine and an Endoc rine Socie ty pract ice guide line as a level of serum 25-OH vitam in D less than 20 ng/mL (1,2) . The Endoc rine Socie ty went on to furth er defin e vitam in D insuf ficie ncy as a level betwe en 21 and 29 ng/mL (2). 1. IOM (Inst itute of Medic ine). 2009. Dieta ry refer ence intak es for calci um and D. Adelaida camacho [place]: [facility] Press . 2. Alexy ghotra MF, Sonya gray [place], Jose Martin off-F errar i CALDERA, et al. Evalu ation , treat ment, and preve ntion of vitam in D defic iency : an Endoc rine Socie ty clini scotty pract ice guide line. JCEM. 2010; 96(7) :1911 -30. Not Available [facility] ([facility]) [address] [facility], [place], [address], 05/15/2025 08:25:39 05/14/2005/15/2025 HCV ANTIB NEERAJ hep C virus Ab Non Reacti ve non reacti ve HCV antib neeraj alone does not diffe renti ate betwe en previ ously resol malissa infec tion and activ e infec tion. Equiv ocal and React vira HCV antib neeraj resul ts shoul d be follo wed up with an HCV RNA test to suppo rt the diagn osis of activ e HCV infec tion. Not Available [facility] ([facility]) [address] [facility], [place], [address], 05/15/2025 08:25:40 05/14/20 25 05/15/2025 GGT GGT 30 IU/L 0-65 normal Not Available [facility] ([facility]) [address] [facility], [place], [address], 05/15/2025 08:25:40 05/14/20 25 05/14/2025 micro album in/cr eatin ine, mass ratio , urine Microalbumin 30mg Not Available Marthasbrianda ille [address], [address], 05/14/2025 12:13:44 05/14/20 25 05/14/2025 micro album in/cr eatin ine, mass ratio , urine Creatinine 100mg Not Available Maysmichaell le [address], [place], [address], 05/14/2025 12:13:44 05/14/20 25 05/14/2025 micro album in/cr eatin ine, mass ratio , urine Ratio <30mg normal Not Available Logan D [address], [address], 05/14/2025 12:13:44 05/01/20 25 US, arianna x, lisandro s, lower extre mity No observ ation record ed. [email or web address] [facility] [address] [place] [address] , [place], [address], 05/01/2025 14:58:09 05/01/20 25 XR, knee, 3 view No observ ation record ed. [email or web address] [place] ([facility]) [address] [place] [address] [place], [address], 05/01/2025 14:59:53 Result Notes None recorded. Problems Name Problem SNOMED Code Status Onset Date Resolution Date Notes Provider Name and Address Organization Details Recorded Time Hypercholes terolemia 23619633 Active 2020 Henriettanayeli Singleton null, [place] - [facility] 13:15:35 Bilateral cataracts 90541399 Active 2020 Henrietta [place] null, [place] - [facility] 13:19:11 Acute low back pain 082240124 Active 2020 Anne-Marie [place], FILER FINISH [address], [place], [address], [place] - [facility] 14:39:12 Gastroesoph ageal reflux disease without esophagitis 310004802 Active 2020 Anupama Merritt null, [place] - [facility] 13:32:15 Coronary arterioscle rosis 89846547 Active 2020 Anupama Merritt null, [place] - [facility] 13:35:49 Thrombocyto sis 6110156 Active 2021 Ali Raquel null, [place] - [facility] 2 12:26:46 Vitamin D deficiency 73382943 Active 2021 Ali Raquel null, [place] - [facility] 2 12:28:19 CT of abdomen abnormal 9841108738716 9107 Active 2021 Ali Raquel null, [place] - [facility] 2 21:34:27 Problem Notes None recorded. Procedures Surgical History Date Name Laterality Status Provider Name and Address Organization Details Recorded Time 05/14/20 25 Advance Care Planning completed Chano Uri [place] - [facility] 05/14/2025 11:43:21 05/14/20 25 Functional Status Assessed completed Chano Grewal [place] - [facility] 05/14/2025 11:43:21 09/26/20 24 Punch Biopsy completed Anne Ospina PA-C [address], [place], [address], [place] - [facility] 09/26/2024 10:54:42 02/02/20 23 [...] Name and Address Organization Details Recorded Time 476063 Aleve medicatio n Not available Not available Not available 08/13/2021 69938 1 RxNorm was takin g kerry ently . cause d stage 4 renal failu re acute ly. Anne-Marie Washington, [employer]ISH [address], [place], [address], [place] - [facility] 14:25:01 33535 Levaquin medicatio n Not available Not available Not available 09/03/20162014 38678 2 RxNorm React ion: tendo n pain; Not Available [facility] 6 09:11:46 34659 nitroglyc delfin medicatio n Not available Not available Not available 09/03/20162014 4917 RxNorm React ion: extre me low BP; Not Available [facility] 6 09:11:47 94934 Excedrin medicatio n nausea Not available Not available 09/03/20162014 38594 0 RxNorm React ion: Extre me nause a; Not Available [facility] 6 09:27:38 99936 Keflex medicatio n rash Not available Not available 09/03/2016201416 7 RxNorm React ion: rash; Not Available [facility] 6 09:51:40 Medications Name Sig Start Date [...] 24 hr;Recor ded Status: Recorded on: 01/17/20 15 3:09PM;U ser: colvinc Not Available Not Available [...] ser: steven; Est. Completi on: 04/05/20 15;Pharm acyVerif ied: 02/05/20 15 9:23AM Not Available Not Available Not Available Tylenol 325 mg tablet take 2 tablets (650 mg) by oral route every 6 hours as needed 03/22 completed Tylenol 325 mg oral tablet;P rescribe Status: Prescrib ed on: 08/18/20 15 3:17PM;D iscontin ued Status: Disconti nued on: 03/22/20 16 1:58PM;U ser: grayn;Ruby tInez Completi on: 09/17/20 15;Pharm acyVerif ied: 08/18/20 15 3:17PM Not Available Not [...] on: 07/26/20 12 11:37AM; User: marco BrownEst. Completmelissa on: 08/17/20 12;Indic ation: Yesi marte - ([phone]) ;Printed : 06/22/20 12 Not [...] 12;Indic ation: Perianal Irritati on - ([phone]);Prin brandy: 07/15/20 11 Not Available Not Available [...] Status: Recorded on: 03/22/20 16 2:25PM;U ser: cecelian;Es t. Completi on: 07/20/20 16;Indic ation: Androgen Deficien cy - () Not Available Not Available Not Available rosuvasta [...] Status: Recorded on: 07/04/20 15 4:35PM;U ser: sy;Es t. Completi on: 08/03/20 15 Not Available Not Available [...] Completi on: 02/17/20 15;Pharm acyVerif ied: 01/17/20 3:47PM Not Available Not Available Not Available ProAir HFA 90 mcg/actua tion aerosol inhaler inhale 1 - 2 puffs (90 - 180 mcg) by inhalati on route every 6 hours as needed 03/22 completed ProAir HFA 90 mcg/actu ation inhalati on HFA aerosol inhaler; Recorded Status: Recorded on: 10/14/20 15 10:51AM; Disconti nued Status: Disconti nued on: 03/22/20 16 1:58PM;U ser: [email or web address]; Printed: 10/14/20 Not Available Not Available Not Available fenofibri [...] Avai lable Vitals Date Recorded Body height Respiratory rate Body temperature Heart rate Oxygen saturation Oxygen saturation in Arterial blood by Pulse oximetry Systolic And Diastolic Provider Name and Address Organization Details Last Updated DateTime 5 162.56 cm 14 /min 98.2 [degF] 69 /min 97 % 97 % 130/80 mm[Hg] Farideh Aguirre [place] - [facility] 5 14:35:29 Date Recorded Body height Body mass index (BMI) Body weight Respiratory rate Oxygen saturation Oxygen saturation in Arterial blood by Pulse oximetry Heart rate Body temperature Systolic And Diastolic Provider Name and Address Organization Details Last Updated DateTime 5 162.56 cm 30.9 kg/m2 31713.6 3 g 14 /min 96 % 96 % 70 /min 98.1 [degF] 138/82 mm[Hg] Chano Grewal [place] - [facility] 5 15:53:28 Date Recorded Body height Body mass index (BMI) Body weight Body temperature Respiratory rate Heart rate Oxygen saturation Oxygen saturation in Arterial blood by Pulse oximetry Systolic And Diastolic Provider Name and Address Organization Details Last Updated DateTime 5 162.56 cm 30.9 kg/m2 90446.6 3 g 97.5 [degF] 14 /min 54 /min 98 % 98 % 124/80 mm[Hg] Chano Grewal [place] - [facility] 5 11:42:04 Date Recorded Body height Respiratory rate Body mass index (BMI) Body weight Body temperature Heart rate Oxygen saturation Oxygen saturation in Arterial blood by Pulse oximetry Systolic And Diastolic Provider Name and Address Organization Details Last Updated DateTime 4 162.56 cm 14 /min 31.4 kg/m2 89085.4 g 97.8 [degF] 66 /min 97 % 97 % 132/80 mm[Hg] Chano Grewal [place] - [facility] 4 10:40:00 Date Recorded Body height Respiratory rate Body mass index (BMI) Body weight Body temperature Oxygen saturation Oxygen saturation in Arterial blood by Pulse oximetry Heart rate Systolic And Diastolic Provider Name and Address Organization Details Last Updated DateTime 4 162.56 cm 14 /min 31.8 kg/m2 22173.5 9 g 97.7 [degF] 98 % 98 % 81 /min 134/84 mm[Hg] Chano Grewal [place] - [facility] 4 16:04:56 Social History Question Answer Notes LastModified by Organizat ion Details LastModified Time Tobacco Smoking Status Former Smoker quit 27 years ago Henrietta londono [place] - [facility] 08/13/2021 13:18:23 Are You Blind Or Do You Have Difficulty Seeing? Yes [email or web address] Information not available 08/13/2021 What Is Your Level Of Caffeine Consumption? Heavy Information not available 08/13/2021 In The 14 Days Before Symptom Onset, Have You Had Close Contact With A [facility] While That Case Was Ill? No [...] Do You Have Serious Difficulty Hearing? Yes [email or web address] Information not available 08/13/2021 What Type Of [...] Or The Highest Degree You Have Received? [id number] Information not available 09/09/2021 Have There Been Any Changes To Your Family Or Social Situation? No Information no t available 09/09/2021 What Is The Fluoride Status Of Your Home? Fluoridated Information not available 09/09/2021 When Did You Quit Smoking? 16+yearssinsaba mellocarla [email or web address] Information not available 08/13/2021 Have You Recently Or Are You Planning To Travel To An Area With Zika Virus? No Information not available 02/15/2024 What Was The Date Of Your Most Recent Tobacco Screening? 05/14/2025 Information not available 05/14/2025 How Many Children Do You Have? 4 4 Boys [email or web address] Information not available 08/13/2021 What Is Your Current Pack Years? [email or web address] Information not available 04/13/2023 Do You Use Protection During Sex? No Information not available 04/13/2023 Do You Use Protection Against STDs? No Information not available 04/13/2023 What Is Your Relationship Status? [email or web address] Information not available 08/13/2021 Are You Sexually Active? Yes Information not available 04/13/2023 Do You Have Smoke And Carbon Monoxide Detectors In Your Home? Yes Information not available 09/09/2021 At What Age Did You Start Smoking Tobacco? 13 [email or web address] Information not available 08/13/2021 Are You Passively Exposed To Smoke? No Information no t available 09/09/2021 How Much Tobacco Do You Smoke? No Information not available 02/15/2024 Has Tobacco Cessation Counseling Been Provided? No Information not available 09/09/2021 How Many Years Have You Smoked Tobacco? 30 Information not available 04/13/2023 Do You Have Difficulty Walking Or Climbing Stairs? No [email or web address] Information not available 08/13/2021 What Contraceptive Method [...] is your level of alcohol consumption? None [email or web address] Information not available 08/13/2021 Do you or have you ever used smokeless tobacco? Former smokeless tobacco user Information not available 09/09/2021 Are you currently employed? No Information not available 09/09/2021 Do you have transportation difficulties? No [email or web address] Information not available 08/13/2021 Are you able to walk? YESWOREST [email or web address] Information not available 08/13/2021 Do you have difficulty doing errands alone? No [email or web address] Information not available 08/13/2021 Are you able to care for yourself? Yes [email or web address] Information n ot available 08/13/2021 Do you have difficulty dressing or bathing? No [email or web address] Information not available 08/13/2021 Do you or have you ever used e-cigarettes or vape? Never used electronic cigarettes Information not available 09/09/2021 What is your exercise level? None Information not available 09/09/2021 Mental Status Question Answer Note LastModified by Organizat ion Details LastModified Time Do you feel stressed (tense, restless, nervous, or anxious, or unable to sleep at night)? [id number] [facility] Information not available 09/09/2021 Do you have difficulty concentrating, remembering or making decisions? No [email or web address] Information no t available 08/13/2021 Family History Relationship Description Onset Age of this Age Resolved Age Notes LastModified by Organization Details LastModified Time Mother Heart disease [email or web address] Not available 08/13 13:17:42 Mother Diabetes mellitus [email or web address] Not available 08/13 13:17:32 Father Heart disease Not available 08/13 13:17:45 Medical History No medical history recorded. Immunizations Vaccine Type Date Status Note Provider Nam e and Address Organization Details Recorded Time Tdap 09/27/2012 completed Not Available [employer] 12/29/2019 02:21:29 Past Encounters Encounter ID Performer Location Encounter Start Date Encounter Closed Date Diagnosis/Indication Diagnosis SNOMED-CT Code Diagnosis ICD10 Code Diagnosis Note [id number] Anne-Marie Washington APRN [address] [place] [address] 08/13/2021 13:03:55 08/13/2021 14:16:02 Lumbago with sciatica 266792383 M54.40 Patient advised to take medication as directed here. Patient advised to rest initially and then slowly increase activity level. Monitor changes in symptoms such as numbness, tingling or weakness in legs, changes in bowel or bladder habits or worsening back pain. Proper ergonomics discussed. Referral to physical therapy as needed. Patient will call if symptoms worsen or if pain persists greater than 8 weeks. Low back strain 86677418 1 S39.012A Antwon hematuria 09196597 5 R31.0 -requested CT from [facility].needs either hematuria protocol ct or ct urogram-fo llowed by cystoscopy likely if UCx neg.-f/u 2 wks- recheck UA, discuss CT results, refer to Uro if needed at that time for cysto-disc ussed increased risk of urothelial ca d/t smoking hx. Patient me dical record not available 407346538 Z76.89 Acute low back pain 2788 05242 M54.5 Mesenteric lymphadenopathy 328949748 I88.0 -discussed .-medrol heriberto Increased frequency of urination 089804583 R35.0 -discuss at f/u. Fatigue 83393605 R53.83 -discuss at f/u.-testo sterone eval. [id number] Anne-Marie Washington APRN [address] [place] [address] 08/27/2021 13:48:11 08/27/2021 14:37:12 Body mass index 30+ - obesity 957715094 Z68.31 31.6 Lumbago with sciatica 20 7760480 M54.40 Patient advised to take medication as directed here. Patient advised to rest initially and then slowly increase activity level. Monitor changes in symptoms such as numbness, tingling or weakness in legs, changes in bowel or bladder habits or worsening back pain. Proper ergonomics discussed. Referral to physical therapy as needed. Patient will call if symptoms worsen or if pain persists greater than 8 weeks.-dec PT Referral. Antwon hematuria 15555381 5 R31.0 - ct urogram ordered-fo llowed by cystoscopy .-referral to dr beckham.-d iscussed increased risk of urothelial ca d/t smoking hx. Mesenteric lymphadenopathy 675192913 I88.0 -discussed .-medrol heriberto finished. Patient ct dical record not available 641056905 Z76.89 Increased frequency of urination 841092895 R35.0 -discuss at f/u-urolog y referral pending- will need cysto. Fatigue 97606563 R53.83 -discuss at f/u.-testo sterone eval. [id number] Ludin George MD [address] [place] [address] 09/09/2021 13:18:43 09/09/2021 14:19:15 Hypercholesterolemia 64352862 E78.00 controlled Gastroesop hageal reflux disease without esophagitis 293301125 K21.9 controlled Coronary arteriosclerosis 02952039 I25.10 controlled Degenerati on of lumbar intervertebral disc 76525758 M51.36 stable Body mass index 30+ - obesity 297527181 Z68.31 [id number] Bora García MD [address] [place] [address] 02/25/2022 08:16:00 02/25/2022 10:33:05 Rectal hemorrhage 39783482 K62.5 Patient has rectal bleeding for the last 2 to 3 months. He had rectal bleeding last time yesterday. Will refer to GI. I recommende d that he should go to hospital emergency department (ER) right now for further evaluation and management of rectal bleeding. I offered transfer to (ER) via ambulance and patient declined that. Follow up with us and GI after hospital discharge. Patient agrees with the above plan. Blood in urine 41772504 R31.9 Pt tells me he had red tinged urine last yr and dint have it seeing seeing his Urologist in Nov 2021. He reports to have a normal cystoscopy . MRI of abdomen had shown no renal masses. He has an appointmen t scheduled with his Urologist and asked to keep that one. I recommende d that he should seek an immediate medical attention i.e. call us or go to the hospital emergency department (ER) right away should get blood in urine again, red colored urine, urinary complaints or any other complaints or symptoms Immunization advised 310 372008 Z71.9 Patient has declined to get Td/Tdap, Pneumonia, Shingles, COVID and Influenza vaccines despite counsellin g and education Screening for malignant neoplasm of prostate 935250819 Z12.5 Venereal d isease screening 790833472 Z11.3 Patient has declined to be screened for venereal/s exually transmitte d diseases/i nfections despite counsellin g and education Body mass index 30+ - obesity 474999700 Z68.32 Take a low fat diet, exercise and loose weight. Follow up in 3 months. Abdominal pain 31429781 R10.9 Intermitte nt and happened 2-3 times over last 2-3 weeks. No known allergies to contrast or dye. Will get CT scan of abdomen and pelvis. I recommende d that he should seek an immediate medical attention i.e. go to a hospital emergency department (ER) right away should get abdominal pain again or any other complaints or symptoms [id number] Bora García MD [address] [place] [id number] 03/16/2022 16:51:24 03/16/2022 18:30:40 Thrombocytopenic disorder 878959741 D69.6 Screening for malignant neoplasm of prostate 462487788 Z12.5 Hyperglycemia 41056496 R 73.9 I discussed with patient an appropriat e diabetic diet. Encouraged to develop an exercise program and loose weight. Get A1c Abdominal pain 88674171 R10.9 Pt reports intermitte nt abdominal bloating and discomfort for last two months now. He had a recent CT abdomen pelvis that showed acute diverticul itis in addition to other findings as detailed in [facility]. He has been taking Augmentin as prescribed for acute diverticul itis. Tells me feels bloated right now. He reports on and off abdominal pain in variable areas of his abdomen: RUQ and bilateral lower abd areas. I recommende d he should go to a hospital emergency department (ER) right now for further evaluation and management . I offered transfer to ER via ambulance and patient declined that. But he agreed to go to an ER right now. Follow up with us, GI and general surgeon after the hospital discharge. Patient agrees with the above plan. Gastroesop hageal reflux disease 353738719 K21.9 I discussed lifestyle modificati ons. Stop Nexium. Take Pantoprazo le as prescribed . Will also refer to GI. See us back or go to an ER right away should gets worse or develops any new symptoms or complaints . Vitamin D deficiency 347 04565 E55.9 Take Vitamin D3 as prescribed . Get Vitamin D 25 (OH) level in 3 months and see us for same. Hypertriglyceridemia 302 200371 E78.2 Avoid concentrat ed sugars. Take a low fat diet. Exercise. Loose weight. Increase dose of pravastati n to 40 mg once a day. Get a repeat fasting lipid panel in 2 months and see us for same. CT of abdo men abnormal 8873123522 5015431 R93.5 CT scan showed: stable haziness and increased density of the small bowel mesentery. Differenti al diagnosis includes mesenteric panniculit is and lymphoma. Also see above No-1. Follow up with a general surgeon once discharged from the ER. Rectal hemorrhage 586282 02 K62.5 Pt tells me he dint have further episodes of rectal bleeding since 02.28.22. See GI for a thorough evaluation [id number] Ludin George MD [address] [place] [address] 08/12/2022 14:55:16 08/12/2022 15:43:15 Hypercholesterolemia 06767605 E78.00 controlled Pain in both feet 160063 0745 2578140 M79.671 Body mass index 30+ - obesity 818905255 Z68.32 Pain of ri ght shoulder joint 1299906698 5360149 M25.514 [id number] Ludin George MD [address] [place] [address] 04/13/2023 15:32:18 04/13/2023 16:07:49 Vitamin D deficiency 75374822 E55.9 Coronary arteriosclerosis 84221119 I25.10 controlled Thrombocytosis 5764870 D 75.839 Gastroesop hageal reflux disease without esophagitis 989754863 K21.9 controlled Hypercholesterolemia 136 67970 E78.00 controlled Bilateral cataracts 9572 2004 H26.9 Bilateral hearing loss 70327922 H91.93 Pain of ri ght knee joint 1127888499 91664 M25.561 Benign ess ential hypertension 2373980 I10 Body mass index 30+ - obesity 060758572 Z68.30 [id number] Ludin George MD [address] [place] [address] 05/25/2023 14:27:12 05/25/2023 15:07:54 Pain of right knee joint 6752721809 51678 M25.561 Pain of left wrist 70864 34273 92368 M25.532 Body mass index 30+ - obesity 535666693 Z68.31 [id number] Ludin George MD [address] [place] [address] 02/15/2024 09:58:08 02/15/2024 11:22:27 Vitamin D deficiency 77959418 E55.9 Coronary arteriosclerosis 05878948 I25.10 Thrombocytosis 7734566 D 75.839 Gastroesop hageal reflux disease without esophagitis 518522069 K21.9 controlled Hypercholesterolemia 136 10271 E78.00 controlled Bilateral cataracts 9572 2003 H26.9 Screening for malignant neoplasm of prostate 965607319 Z12.5 Obstructiv e sleep apnea syndrome 70304655 G47.33 Benign ess ential hypertension 9704218 I10 [id number] Anne Ospina PA-C [address] [address] 02/27/2024 14:25:29 02/27/2024 15:55:46 Long-term drug therapy 451452713 Z79.899 chronic conditions are stable. Acute sinusitis 75411362 J01.90 Headache 25085287 R51.9 [id number] Anne Ospina PA-C [place] [address] 05/29/2024 15:35:50 05/29/2024 16:11:07 Ex-smoker 6253132 Z87.891 Viral screening 98703979 4 Z11.52 Long-term drug therapy 622663452 Z79.899 chronic conditions are stable. Sore throat 312041626 J0 2.9 we will treat for strep due to physical exam, test was neg. Acute sinusitis 67903609 J01.90 went over to watch being in sun. probiotics . Cervical lymphadenopathy 207684992 R59.0 [id number] Anne Ospina PA-C [address] [address] 09/19/2024 11:03:05 09/19/2024 11:49:19 Pain of left knee joint 1222307990 53519 M25.562 Skin lesion 73856917 L98 .9 we will set pt up to have removed. Long-term drug therapy 464800178 Z79.899 chronic conditions are stable. Swelling o f lower jaw region 457806209 R22.0 [id number] BRAD Sutton [address] [address] 09/26/2024 10:21:48 09/26/2024 11:20:18 Long-term drug therapy 484846739 Z79.899 chronic conditions are stable. Lesion of skin of face 9004660353 06 L98.9 pt tolerated well. Gastroesop hageal reflux disease 336096399 K21.9 [id number] Anne Ospina PA-C [address] [address] 10/03/2024 16:00:24 10/03/2024 16:11:59 Seborrheic keratosis 616344108 L82.1 rev path report with patient. Long-term drug therapy 695711058 Z79.899 chronic conditions are stable. Sore throat 135142585 J0 2.9 we will treat for strep due to physical exam, [id number] Juan Diego Jaeger PA-C [address] [address] 12/20/2024 14:21:07 12/20/2024 14:52:41 Acute sinusitis 72266407 J01.90 Cough 22181469 R05.9 [id number] Anne Ospnia PA-C [address] [address] 04/30/2025 15:44:11 04/30/2025 16:12:41 Pain of left knee joint 7012798081 66894 M25.562 pt has tried lidocain patch Pain in ri ght lower limb 659775532 M79.604 moist heat on right calf. Long-term current use of drug therapy 383451163 Z79.899 chronic conditions are stable. [id number] Anne Ospina PA-C [address] [address] 05/14/2025 11:32:53 05/14/2025 12:27:26 Adult health examination 189760776 Z00.00 Depression screening 171 929777 Z13.31 A depression screening was completed via a standardiz ed screening tool. 5 minutes were spent discussing depression screening results and risk factors. Examinatio n of blood pressure 060290301 Z01.30 Diet education 06989888 Z71.3 Counseling 492589281 Z71 .82 Exercise counseling . Patient encouraged to exercise 30 minutes 5 days a week. [facility] for falls 171342082 Z91.81 STEADI FAST screening score of . Advance care planning 71 1626701 Z71.89 Viral scre ening status 519380198 Z11.59 Bilateral cataracts 9572 2003 H26.9 he had surgery for this and had them removed. Coronary arteriosclerosis 66162276 I25.[address] Peterson. He last saw him 11 months ago. Gastroesop hageal reflux disease without esophagitis 073673312 K21.9 stable. Hypercholesterolemia 136 24999 E78.00 we will get chol today as well. Thrombocytosis 4545088 D 75.839 we will get cbc. Vitamin D deficiency 347 82216 E55.9 Taking med ication for chronic disease 2917931860 67747 Z79.899 chronic conditions are stable.. Acute sinusitis 40176772 J01.80 went over to watch being in sun. probiotics . Prediabetes 725603898 R7 3.03 Gastroesop hageal reflux disease 139878079 K21.9 Pain of le ft knee joint 1783444232 06447 M25.562 pt has tried lidocain patch. ot is back and he wants referral to dr demarco. Health Concerns Section Related Observation LastModified by Organization Detai ls LastModified Time None Recorded Concern Status LastModified by Organization Details LastModified Time None Recorded Advance Directives Directive None Recorded Payers Insurance Date Sequence Insurance Name Policy Number Policy Nash Covered Member ID Nash Member ID Guarantor Name 02/25/2022 1 [employer] (MEDICARE REPLACEMENT/AD VANTAGE - PPO) Marco A Bahena [id number] Marco A Bahena 06/06/2025 1 [place]MEDICARE REPLACEMENT HMO) [id number] Marco A Bahena [id number] Marco A Bahena Notes Date Note Type Note Provider Name and Address Organization Details Recorded Time 09/26/2024 text/html Patient is here to get skin lesion removed. He has on eye brow. It has been bothering him and he picks off and it will not heal.pt needs refills on stomach pill. Anne Ospina PA-C [address], [place], [address], [facility] - [facility] 09/26/2024 10:56:53 10/03/2024 text/html Patient is here to f/u on skin lesion. He had removed last week. It is healing well. No bleeding.Patient has had sore throat. It is worse at night. pos PND. pos cough at night with mucus. mucus is yellow. NO N/V/F/D. He does not want swabbed. Anne Ospina PA-C [address], [place], [address], [facility] - [facility] 10/03/2024 16:10:29 12/20/2024 text/html PT has had cough , sinus congestion, nasal passages feeling full for a while now. Pt has tried zpack twice and didn't seem to help much. disc meds.last note revd. Juan Diego Jaeger PA-C [address], [place], [address], [facility] - [facility] 12/20/2024 14:52:12 04/30/2025 text/html Patient is here for left knee pain. Patient also is having right calf pain. right calf has pain and huey on medial side of calf. This started 3 days ago. He sits for a while during the day. He gets up and moves around.Left knee pain has been going on for over a year. It is getting worse. Knee pain is dull to sharp. He states it give out. He has had this happen twice. No popping. He states it feels like it could. He had injury a year ago. Anne Ospina PA-C [address], [place], [address], [facility] - [facility] 04/30/2025 16:09:40 05/14/2025 text/html Medicare Annual Wellness VisitReported bypatient.Diet [...] has had xrays done. Anne Ospina PA-C [facility] [place] [address] [place], [address], [facility] - [facility] 05/14/2025 12:25:07
--- OUTSIDE RECORDS SUMMARY | 2025-06-14 06:11 | XMS_ITS | Clinical Summary ---
Author Organization [facility] [place] Address [address] [place] [address] Phone Care Team Providers Care Health Care Coordinator Name Role Phone Nonstaff, Referring Primary Care Provider Dennys jiang Allergies Active Allergy Reactions Criticality Noted Date Comments Nitro 05/18/2016 Wrwlflh-Zhc-Kix Reductase Inhibitors 05/18/2016 Medications fenofibrate micronized (ANTARA) 43 mg Oral Capsule Take 43 mg by mouth every morning (before breakfast). Active isosorbide dinitrate (ISORDIL) 30 mg Oral Tablet Take 30 mg by mouth 2 times daily. Active ranolazine (RANEXA) 500 mg Oral Tablet Sustained Release 12 hr Take 500 mg by mouth every 12 hours. Active clopidogrel (PLAVIX) 75 mg Oral Tablet Take 75 mg by mouth daily. Active aspirin 81 mg Oral Tablet, Delayed Release (E.C.) Take 81 mg by mouth daily. Active ranitidine (ZANTAC) 150 mg Oral Tablet Take 150 mg by mouth 2 times daily. Active testosterone (ANDROGEL) 1 % (25 mg/2.5gram) TD Gel in Packet Place 50 mg onto the skin daily. Active sulfamethoxazol e-trimethoprim (BACTRIM DS) 800-160 mg Oral Tablet Take by mouth every 12 hours. Active Active Problems Problem Noted Date Diagnosed Date Varicocele 06/04/2016 Orchalgia 05/18/2016 Spermatocele 05/18/2016 Screening PSA (prostate specific antigen) 2015 Surgical History Surgery Date Site/Laterality Comments BACK SURGERY EYE SURGERY GALLBLADDER SURGERY CHOLECYSTECTOMY UPPER GASTROINTESTINAL ENDOSCOPY Medical History Medical History Date Comments Chronic kidney disease Heart attack (HCC) Hyperlipidemia Angina pectoris Heartburn Clotting disorder Family History Medical History Relation Name Comments Cancer Father Heart Disease Father Heart Disease Mother Relation Name Status Comments Father Mother Social History Tobacco Use Types Packs/Day Years Used Date Smoking Tobacco: Former Cigarettes Smokeless Tobacco: Never Alcohol Use Standard Drinks/Week Comments No 0 (1 standard drink = 0.6 oz pur e alcohol) Sex and Gender Information Value Date Recorded Sex Assigned at Not on file Legal Sex Male 11:13 AM EDT Gender Identity Not on file Sexual Orientation Not on file Obstetrics History Last Filed Vital Signs Vital Sign Reading Time Taken Comments Blood Pressure 109/68 06/29/2016 4:48 PM EDT Pulse 56 06/29/2016 4:48 PM EDT Temperature 36.7 C (98 F) 06/29/2016 4:55 PM EDT Respiratory Rate 20 06/29/2016 4:48 PM EDT Oxygen Saturation 97% 06/29/2016 4:48 PM EDT Inhaled Oxygen Concentration - - Weight 76.7 kg (169 lb) 06/29/2016 10:24 AM EDT Height 160 cm (5' 3 ) 06/29/2016 10:24 AM EDT Body Mass Index 29.94 06/29/2016 10:24 AM EDT Plan of Treatment Health Maintenance Due Date Last Done Comments Wellness Exam Medicare 1963 Hepatitis C Screening 1978 DTaP/TDaP/Td (1 - Tdap) 1979 Cologuard 2005 Colon Cancer Screening 2005 Colonoscopy 2005 FIT 2005 Sigmoidoscopy 2005 Virtual Colonography 2005 Pneumococcal Vaccine 50+ (1 of 1 - PCV) 2010 Zoster (1 of 2) 2010 COVID-19 Vaccine ( - 2023-2 5 season) 2024 Influenza Vaccine (#1) 2025 Hepatitis B Vaccine Aged Out No longe r eligible based on patient's age to complete this topic Meningococcal B Vaccine Aged Out No l onger eligible based on patient's age to complete this topic Medical Devices Implanted Type Area Toe Sewer Device Identifier Shelf Expiration Date Model / Serial / Lot Coronary Stents Coil Embolization Tornado .018 Diameter X 6cm Length 2mm [facility]-06/29/2016 Implanted:Qty: 2 on 06/29/2016 by Felix Martinez MD C[employer]V / / [id number] Coil Embolization Tornado .018 Diameter X 6cm Length 2mm [facility]-06/29/2016 Implanted:Qty: 3 on 06/29/2016 by Felix Martinez MD [employer] / / [id number] Insurance [place]ICARE [place] PART A [place] B [place]ICARE [place] PART A [place] B Care Teams Health Care Coordinator Relationship Specialty Start Date End Date Nonstaff, Referring PCP - General 05/21/16
--- OUTSIDE RECORDS SUMMARY | 2025-06-14 06:11 | XMS_ITS | Continuity of Care Document ---
Author Organization [place] - [facility] - [place] & [place] [facility] Address [address] [place] [address] Care Team Providers Care Biofuels Product Development Manager Name Role Phone SHELDON WHITLOCK Primary Care Provider Unavail able SHELDON WHITLOCK Referring Provider XIN Godoy Primary Care Provider Assessment No assessment recorded. Plan of Treatment Reminders Order Date Submit Date Provider Last Modified By Organization Details Last Modified Time Details Appointments None recorded. Lab None recorded. Referral None recorded. Procedures None recorded. Surgeries None recorded. Imaging MRI, knee, w/o contrast 2024 025 [facility] Central Scheduling, [address] [place] [address], [place], [address], 22:36:40 Medication Orders None recorded. Patient TargetsNo targets recorded. Patient InstructionsNo instructions recorded. Reason for Referral None Reported. Results Created Date Observation Date Name Description Value Unit Range Abnormal Flag Note LastModifiedBy Organization Detail LastModifiedTime 05/23/20 25 05/23/2025 MRI, knee, w/o contr ast [facility] Name: JAYSONALPALOGAN JIANG [address] [place] [address] Phys: Nilam BAKER,Joa[place] [address] : 1959 Age: 64 Sex: M Acct: [id number] Loc: G.MRI PHONE #: Exam Date: 2024 Status : REG CLI FAX #: [phone] Rad# [id number] Unit# [id number] Admit Date: 2024 EXAMS: CPT CODE: [id number] 226 MRI KNEE LEFT W/O CONT [id number] EXAMIN ATION: MRI KNEE LEFT W/O CONT CLINIC AL INDICA TION: Male, 64 years old. PAIN TECHNI QUE: Multip lanar, multis equenc e images were obtain ed of the LEFT KNEE withou t IV contra st. Unless otherw ise stated , incide ntal findin gs identi fied in this report do not requir e routin e follow -up. CONTRA ST: None. COMPAR BEATRIZ: None FINDIN GS: OSSEOU S STRUCT URES: Unrema rkable . No lesion , fractu re, or AVN identi fied. MEDIAL COMPAR TMENT: There is a comple x tear of the sensitized paper tester ior horn of the medial menisc us which includ es a horizo ntal compon ent extend ing to the inferi or articu lar surfac e as well as a vertic al compon ent extend ing to both. Articu lar cartil age is normal ly preser malissa. LATERA L COMPAR TMENT: The latera l menisc us appear s normal . Articu lar cartil age and subcho ndral marrow are normal ly preser malissa. PATELL OFEMOR AL COMPAR TMENT: Normal ly preser malissa cartil age. No patell ar sublux ation or tilt. CRUCIA TE LIGAME NTS: ACL and PCL appear normal . COLLAT ERAL LIGAME NTS: MCL and latera l comple x are intact . EXTENS OR MECHAN ISM: Normal . JOINT SPACE: Trace effusi on. No loose body or poplit eal cyst. SOFT TISSUE S: Normal . No mass, bursit is, or gangli on identi fied. ADDITI ONAL FINDIN GS: None. IMPRES KATELYN: 1. Comple x medial menisc al tear. 2. Trace effusi on. PAGE 1 Signed Report (JUAN RAMON NUED) [facility] Name: ALPA BAHENA [address] [employer] Phys: [place] [address] : 1959 Age: 64 Sex: M Acct: [id number] Loc: G.MRI PHONE #: [phone] Exam Date: 2024 Status : REG CLI FAX #: Rad# [id number] Unit# [id number] Admit Date: 2024 EXAMS: CPT CODE: [id number] 226 MRI KNEE LEFT W/O CONT 31953 Electr onical ly signed by: Suyapa morrow MD 2024 10:33 PM EDT RP Workst ation: SEALWR [id number] Electr onical ly Signed by SUYAPA Morrow on 2024 at 2222 Report ed and signed by: SYDNEE DAVIDSON CC: Peri morrow PAYogiC; Jerad Demarco MD Dictat ed Date/T blake: 2024 (2221) Techno logist : TIFFANIE COCHRAN Transc ribed Date/T blake: 2024 (2221) Transc riptio nist: DR.ROB TUCKER Electr onic Signat ure Date/T blake: 2024 (2221) Printe d Date/T blake: 2024 (2235) BATCH NO: N/A PAGE 2 Signed Report CC'ed Logic: Orderi ng Provid er: NILAM MASTERSON Attend ing Provid er: NILAM MASTERSON Referr ing Provid er: NILAM MASTERSON Consul ting Provid er: [facility] [address] , [place], [address], 05/24/2025 07:11:27 Result Notes None recorded. Problems Name Problem SNOMED Code Status Onset Date Resolution Date Notes Provider Name and Address Organization Details Recorded Time Hypercholes terolemia 63157236 Active 2020 Estefany Black null, [place] - [facility] [place] [facility] [place] 3 10:54:37 Bilateral cataracts 29602674 Active 2020 Estefany Black null, [place] [facility] [place] [facility] [place] 3 10:54:37 Acute low back pain 266897435 Active 2020 Estefany Black null, [place] [facility] [place] [facility] [place] 3 10:54:37 Gastroesoph ageal reflux disease without esophagitis 723946266 Active 2020 Estefany Jeremiah null, [place] [facility] & [place] 3 10:54:37 Coronary arterioscle rosis 84794425 Active 2020 Estefany Black null, [place] [facility] & [facility] 3 10:54:37 Vitamin D deficiency 63660958 Active 2021 Estefany Black null, [place] [facility] & [place] 3 10:54:37 Thrombocyto sis 7067860 Active 2021 Estefany Black null, [place] [facility] & [place] 3 10:54:37 CT of abdomen abnormal 1068058815484 9107 Active 2021 Estefany Black [place], DAVID - [facility] - [place] & [place] 3 10:54:37 Sensorineur al hearing loss 20028691 Active 2022 Estefany Jeremiah null, [place] - [facility] & [place] 3 10:54:37 Problem Notes None recorded. Procedures Surgical History Date Name Laterality Status Provider Name and Address Organization Details Recorded Time 3 Other completed Christy HERNANDEZ - [facility] [place] [facility] [place] 02/18/2025 09:58:15 0 Back Surgery completed Christy HERNANDEZ - [facility] [place] [facility] [place] 02/18/2025 09:58:15 4 Other completed Christy HERNANDEZ - [facility] [place] & [place] 02/18/2025 09:58:15 Imaging Results None recorded. Procedure Notes None recorded. Medical Equipment None Reported. Allergies Allergen ID Allergen Name Allergen Category Reaction Reaction Severity Criticality Documentation Date Start Date Code Code System Note Provider Name and Address Organization Details Recorded Time 79291 nitroglyc delfin medicatio n Not available Not available Not available 07/13/20232014 4917 RxNorm Estefany Black null, [place] - [facility] [place] & [place] 3 10:54:21 51635 Aleve medicatio n Not available Not available Not available 07/13/2023 38619 1 RxNorm DAVID [facility] & [place] 3 10:54:21 24595 Keflex medicatio n rash Not available Not available 07/13/20232014 59747 7 RxNorm DAVID [facility] & [place] 3 10:54:21 47197 Levaquin medicatio n Not available Not available Not available 07/13/20232014 29606 2 RxNorm DAVID [facility] & [place] 3 10:54:21 82968 Excedrin medicatio n nausea Not available Not available 07/13/20232014 65164 0 RxNorm [facility] & [place] 3 10:54:21 Medications Name Sig Start Date Stop Date Status Note LastModified by Organization Details LastModified Time cyclobenzap rine 10 mg tablet TAKE 1 TABLET BY MOUTH TWICE DAILY NEEDED FOR 10 DAYS 08/27 completed Not Available Not Available Not Available prednisone 10 mg tablet active Not Available Not Available Not Available doxycycline hyclate 100 mg capsule active Not Available Not Available N ot Available clindamycin HCl 300 mg capsule active Not Available Not Available Not Available azithromyci n 250 mg tablet TAKE 2 TABLETS BY MOUTH ON DAY 1, AND THEN TAKE 1 TABLET BY MOUTH ONCE A DAY ON DAY 2 THROUGH DAY 5 active Not Available Not Available No t Available hydrocodone 5 mg-acetamin ophen 325 mg tablet TAKE 1 TABLET BY MOUTH EVERY 6 HOURS NEEDED FOR PENILE PAIN AFTER SURGERY 08/12 completed Not Available Not Available Not Available meloxicam 15 mg tablet take 1 tablet (15 mg) by oral route once daily 08/13 completed Not Available Not Available Not Available Medrol (Heriberto) 4 mg tablets in a dose pack take as directed for 6 days 07/13 completed Not Available Not Available Not Available prednisone 20 mg tablet TAKE 1 TABLET BY MOUTH ONCE DAILY FOR 5 DAYS active Not Available Not Available No t Available isosorbide mononitrate ER 30 mg tablet,exte nded release 24 hr 08/13 completed Not Available Not Available Not Available amlodipine 2.5 mg tablet TAKE 1 TABLET BY MOUTH ONCE DAILY 07/13 completed Not Available Not Available Not Available clopidogrel 75 mg tablet TAKE 1 TABLET BY MOUTH ONCE DAILY active Not Available Not Available No t Available sulfamethox azole 800 mg-trimetho prim 160 mg tablet TAKE 1 TABLET BY MOUTH EVERY 12 HOURS FOR 7 DAYS active Not Available Not Available No t Available triamcinolo ne acetonide 0.1 % topical cream apply a thin layer to the affected area(s) by topical route 2 times per day 08/13 completed Not Available Not Available Not Available Zantac 150 mg tablet take 1 tablet (150 mg) by oral route 2 times per day 08/13 completed Not Available Not Available Not Available bisoprolol fumarate 5 mg tablet TAKE 1 TABLET BY MOUTH ONCE DAILY active Not Available Not Available No t Available pantoprazol e 40 mg tablet,jay yed release TAKE 1 TABLET BY MOUTH ONCE DAILY FOR 90 DAYS active Not Available Not Available No t Available Cipro 500 mg tablet take 1 tablet (500 mg) by oral route 2 times per day for 30 days 06/22 completed Not Available Not Available Not Available Nizoral 200 mg tablet take 1 tablet by oral route daily for 30 days 07/15 completed Not Available Not Available Not Available betamethaso ne dipropionat e 0.05 % topical cream apply a thin layer to the affected area(s) by topical route 2 times per day 07/04 completed Not Available Not Available Not Available Tylenol 325 mg tablet take 2 tablets (650 mg) by oral route every 6 hours as needed 03/22 completed Not Available Not Available Not Available diclofenac sodium 75 mg tablet,jay yed release 07/13 completed Not Available Not Available Not Available pravastatin 20 mg tablet 07/13 completed Not Available Not Available Not Available Levaquin 500 mg tablet take 1 tablet (500 mg) by oral route once daily for 14 days 07/26 completed Not Available Not Available Not Available testosteron e cypionate 200 mg/mL intramuscul ar oil inject 1 millilite r (200 mg) by intramusc ular route every 2 weeks 03/22 completed Not Available Not Available Not Available Anusol-HC 25 mg rectal suppository insert 1 supposito ry by rectal route 4 times a day for 15 days 06/14 completed Not Available Not Available Not Available ketorolac 60 mg/2 mL intramuscul ar solution Inject 2 mL every day by intramusc ular route for 1 day. 08/27 completed Not Available Not Available Not Available bromphenira mine-pseudo ephedrine-D M 2 mg-30 mg-10 mg/5 mL oral syrup TAKE 10 ML BY MOUTH TWICE DAILY FOR 10 DAYS active Not Available Not Available No t Available amoxicillin 875 mg-potassiu m clavulanate 125 mg tablet TAKE 1 TABLET BY MOUTH EVERY 12 HOURS FOR 10 DAYS 08/12 completed Not Available Not Available Not Available Vitamin D3 25 mcg (1,000 unit) capsule TAKE 1 CAPSULE BY MOUTH ONCE DAILY 08/12 completed Not Available Not Available Not Available Testim 50 mg/5 gram (1 %) transdermal gel apply 100 mg by topical route once daily (2 tubes = 100 mg) 07/20 completed Not Available Not Available Not Available rosuvastati n 10 mg tablet TAKE 1 TABLET BY MOUTH ONCE DAILY active Not Available Not Available No t Available rosuvastati n 20 mg tablet TAKE 1 TABLET BY MOUTH ONCE DAILY active Not Available Not Available No t Available ketorolac 0.4 % eye drops active Not Available Not Available Not Available syringe with needle, safety 3 mL 22 gauge x 1 use with testoster one every 2 weeks 08/03 completed Not Available Not Available Not Available ranolazine ER 500 mg tablet,exte nded release,12 hr TAKE 1 TABLET BY MOUTH TWICE DAILY active Not Available Not Available No t Available CeraVe topical cream apply to affected area(s) by topical route 4 times a day 02/16 completed Not Available Not Available Not Available ProAir HFA 90 mcg/actuati on aerosol inhaler inhale 1 - 2 puffs (90 - 180 mcg) by inhalatio n route every 6 hours as needed 03/22 completed Not Available Not Available Not Available fenofibric acid 35 mg tablet take 1 tablet (35 mg) by oral route once daily 08/13 completed Not Available Not Available Not Available Suprep Bowel Prep Kit 17.5 gram-3.13 gram-1.6 gram oral solution 08/12 completed Not Available Not Available Not Available Brilinta 90 mg tablet 07/13 completed Not Available Not Available Not Available Vitals None Recorded Social History Question Answer Notes LastModified by Bebo Details LastModified Time Tobacco Smoking Status Former Smoker Christy Escalera [facility], [facility] & [place] 02/18/2025 09:58:12 Do You Have An Advance Directive? No Information not available 02/18/2025 Are You Blind Or Do You Have Difficulty Seeing? No Information not available 02/18/2025 What Was The Date Of Your Most Recent Tobacco Screening? 07/13/2023 Information not available 02/18/2025 Are You Passively Exposed To Smoke? No Information not available 02/18/2025 How Much Tobacco Do You Smoke? 1 PPD Information not available 02/18/2025 How Many Years Have You Smoked Tobacco? 20 Information not available 02/18/2025 Sex: Male Functional Status Question Answer Note LastModified by Organizat [employer] Details LastModified Time Do you use any illicit or recreational drugs? No Information not available 02/18/2025 What is your level of alcohol consumption? None Information not available 02/18/2025 What is your exercise level? Moderate Information not available 02/18/2025 Mental Status Question Answer Note LastModified by Organization D etails LastModified Time Do you feel stressed (tense, restless, nervous, or anxious, or unable to sleep at night)? [id number] Information not available 02/18/2025 Family History Relationship Description Onset Age of this Age Resolved Age Notes LastModified by Organization Details LastModified Time Father Hearing loss pt. added direct ly (07/13) [email or web address] Not available 07/13/2023 10:08:54 Father Myocardial infarction pt. added direct ly (07/13) [email or web address]-13 Not available 07/13/2023 10:08:54 Father Heart disease pt. added direct ly (07/13) [email or web address]-13 Not available 07/13/2023 10:08:54 Mother Heart disease pt. added direct ly (07/13) [email or web address] Not available 07/13/2023 10:09:34 Mother Hypercholest erolemia pt. added direct ly (07/13) [email or web address]-13 Not available 07/13/2023 10:09:34 Mother Obesity pt. added direct ly (07/13) [email or web address]-13 Not available 07/13/2023 10:09:34 Mother Osteoporosis pt. added direct ly (07/13) [email or web address]-13 Not available 07/13/2023 10:09:34 Medical History Condition Response Clotting Disorder Y Vision or Eye Problems Y Arthritis Y High Cholesterol Y Ear or Hearing Problems Y Back Problems Y Heart Disease Y Immunizations Vaccine Type Date Status Note Provider Nam e and Address Organization Details Recorded Time Tdap 09/27/2012 completed Estefany londono, [place] - [facility] - [place] [facility] [place] 07/13/2023 10:54:45 Past Encounters Encounter ID Performer Location Encounter Start Date Encounter Closed Date Diagnosis/Indication Diagnosis SNOMED-CT Code Diagnosis ICD10 Code Diagnosis Note [id number] Jerad Demarco MD [facility] [address] [facility] [place] [address] 05/15/2025 10:14:19 05/15/2025 11:19:35 Delmar test positive 257876266 S83.207A Acute meni scal tear, medial 961805537 S83.232A Health Concerns Section Related Observation LastModified by Organization Detai ls LastModified Time None Recorded Concern Status LastModified by Organization Details LastModified Time None Recorded Payers Encounter Date Sequence Insurance Name Policy Number Policy Nash Covered Member ID Nash Member ID Guarantor Name 05/15/2025 1 [place] [id number] Alpa Bahena [id number] Alpa Bahena Notes Date Note Type Note Provider Name and Address Organization Details Recorded Time 05/15/2025 text/html This 64 year old male patient presents in the office today for LEFT knee pain. He had x-rays at [facility] on 04.30.25. He had knee injury 1 year ago and states the knee hasn't been right since. It was a twisting injury while playing basketball. X-rays [facility] 04/30/25 3 views left kneeImpression:Minor left patellofemoral osteoarthritis and findings raising the possibility of infrapatellar bursitis. He went to PCP this week and had IM steroid injection that he reports helped slightly. CHE1 Jerad Demarco MD [address] [facility],[address], [place], [address], [facility] - [facility] - [place] & [place] 05/17/2025 06:47:04
--- OUTSIDE RECORDS SUMMARY | 2025-06-14 06:11 | XMS_ITS | Continuity of Care Document ---
Author Organization [place] - [facility], [facility] Address [address] [place] [address] Care Team Providers Care Pressure Test Operator Name Role Phone SHELDON WHITLOCK Primary Care Provider Unavail SHELDON Carcamo Referring Provider XIN Godoy Primary Care Provider Assessment No assessment recorded. Plan of Treatment Reminders Order Date Submit Date Provider Last Modified By Organization Details Last Modified Time Details Appointments None record ed. Lab None record ed. Referral None record ed. Procedures None record ed. Surgeries None record ed. Imaging None record ed. Medication Orders None record ed. Patient TargetsNo targets recorded. Patient InstructionsNo instructions recorded. Reason for Referral None Reported. Results Created Date Observation Date Name Description Value Unit Range Abnormal Flag Note LastModifiedBy Organization Detail LastModifiedTime 05/23/20 25 05/23/2025 MRI, knee, w/o contr ast [facility] Name: ALPA BAHENA [facility]ly [facility] Phys: Nilam BAKER,[place] [address] : 1959 Age: 64 Sex: M Acct: [id number] Loc: G.MRI PHONE #: [phone] Exam Date: 2024 Status : REG CLI FAX #: [phone] Rad# [id number] Unit# [id number] Admit Date: 2024 EXAMS: CPT CODE: [id number] MRI KNEE LEFT W/O CONT [id number] EXAMIN ATION: MRI KNEE LEFT W/O CONT [...] is a comple x tear of the shot dropper ior horn of the medial menisc us [...] PAGE 1 Signed Report (JUAN RAMON NUED) [facility] Name: ALPA BAHENA [address] [facility] [facility] [employer] Phys: Nilam [place]ER,[place] [address] : 1959 Age: 64 Sex: M Acct: [id number] Loc: G.MRI PHONE #: Exam Date: 2024 Status : REG CLI FAX #: Rad# [id number] Unit# [id number] Admit Date: 2024 EXAMS: CPT CODE: [id number] MRI KNEE LEFT W/O CONT [id number] Electr onical ly signed by: Suyapa morrow MD 2024 10:33 PM EDT RP Workst ation: SEALWR [id number] Electr onical ly Signed by SUYAPA Morrow on 2024 at 2222 Report ed and signed by: SYDNEE DAVIDSON CC: Peri morrow PA-C; Jerad Demarco MD Dictat ed Date/T blake: [...] MASTERSON Consul ting Provid er: LISA [facility] [address] , [place], [address], 05/24/2025 07:11:27 Result Notes None recorded. Problems Name Problem SNOMED Code Status Onset Date Resolution Date Notes Provider Name and Address Organization Details Recorded Time Hypercholes terolemia 38614488 Active 2020 Estefany Black null, [place] [facility] [place] 3 10:54:37 Bilateral cataracts 64958045 Active 2020 Estefany Black null, [place] [facility] [place] 3 10:54:37 Acute low back pain 670036316 Active 2020 Estefany Black null, [place] [facility] & [place] 3 10:54:37 Gastroesoph ageal reflux disease without esophagitis 416676395 Active 2020 Estefany Black null, [place] [facility] & [place] 3 10:54:37 Coronary arterioscle rosis 46122994 Active 2020 Estefany Jeremiah null, [place] - [facility] - [place] & [place] 3 10:54:37 Vitamin D deficiency 61972800 Active 2021 Estefany Black null[place] [facility] [place] & [place] 3 10:54:37 Thrombocyto sis 5179076 Active 2021 Estefany Black null, [place] [facility] - [place] & [place] 3 10:54:37 CT of abdomen abnormal 2605587978124 9107 Active 2021 Estefany Jeremiah null, [place] [facility] - [place] & [place] 3 10:54:37 Sensorineur al hearing loss 85559398 Active 2022 Estefany Black null, [place] [facility] [place] & [place] 3 10:54:37 Problem Notes None recorded. Procedures Surgical History Date Name Laterality Status Provider Name and Address Organization Details Recorded Time 3 Other completed Christy HERNANDEZ - [facility] - [place] & [place] 02/18/2025 09:58:15 0 Back Surgery completed Christy HERNANDEZ - [facility] - [place] & [place] 02/18/2025 09:58:15 4 Other completed Christy HERNANDEZ - [facility] - [place] & [place] 02/18/2025 09:58:15 Imaging Results None recorded. Procedure Notes None recorded. Medical Equipment None Reported. Allergies Allergen ID Allergen Name Allergen Category Reaction Reaction Severity Criticality Documentation Date Start Date Code Code System Note Provider Name and Address Organization Details Recorded Time 75712 nitroglyc delfin medicatio n Not available Not available Not available 07/13/20232014 4917 RxNorm Estefany Jeremiah null, [place] - [facility] - [place] & [place] 3 10:54:21 47565 Aleve medicatio n Not available Not available Not available 07/13/2023 31916 1 RxNorm Estefany Black null, [place] - [facility] - [place] & [place] 3 10:54:21 54532 Keflex medicatio n rash Not available Not available 07/13/2023201416 7 RxNorm [facility] & [place] 3 10:54:21 33568 Levaquin medicatio n Not available Not available Not available 07/13/2023201499 2 RxNorm [facility] & [place] 3 10:54:21 25140 Excedrin medicatio n nausea Not available Not available 07/13/20232014 67240 0 RxNorm [facility] & [place] 3 10:54:21 Medications Name Sig Start Date [...] Social History Question Answer Notes LastModified by [employer] Details LastModified Time Tobacco Smoking Status Former Smoker Christy Escalera [facility], [place] - [facility] & [place] 02/18/2025 09:58:12 Do You Have An Advance [...] Functional Status Question Answer Note LastModified by [employer] [place] Details LastModified Time Do you use any [...] anxious, or unable to sleep at night)? [id number] Information not available 02/18/2025 Family History Relationship [...] Vision or Eye Problems Y Arthritis Y Ear or Hearing Problems Y High Cholesterol Y Heart Disease Y Back Problems Y Immunizations Vaccine Type Date Status Note Provider Nam e and Address Organization Details Recorded Time Tdap 09/27/2012 completed [facility] & [place] 07/13/2023 10:54:45 Past Encounters Encounter ID Performer Location Encounter Start Date Encounter Closed Date Diagnosis/Indication Diagnosis SNOMED-CT Code Diagnosis ICD10 Code Diagnosis Note [id number] Jerad Demarco MD [facility] [address] [facility] [place] [place] [address] 05/15/2025 10:14:19 05/15/2025 11:19:35 Delmar test positive 074676756 S83.207A Acute meni scal tear, medial 201849165 S83.232A [id number] Jerad Demarco MD [facility] [address] [place] [address] 06/05/2025 14:46:22 06/05/2025 16:26:00 Tear of medial meniscus of knee 372608982 S83.242A Osteoarthr itis of left knee joint 4105422661 33861 M17.12 Health Concerns Section Related Observation LastModified by Organization Detai ls LastModified Time None Recorded Concern Status LastModified by Organization Details LastModified Time None Recorded Payers Encounter Date Sequence Insurance Name Policy Number Policy Nash Covered Member ID Nash Member ID Guarantor Name 06/05/2025 1 [place] [id number] Alpa Bahena [id number] Alpa Bahena Notes Date Note Type Note Provider Name and Address Organization Details Recorded Time 06/05/2025 text/html Pt is here for [facility] - MRI LEFT KNEE - 6.26.25IMPRESSION:1. Complex medial meniscal tear.2. Trace effusion.PCP- E. BlevinsCardio- Nicholas- 5 stents. Last stent per pt was PlavixBorderline DM- E1SF Jerad Demarco MD [address] [place] [address],[address], [place], [address], [facility] - [facility] - [place] & [place] 06/06/2025 07:56:29
--- OUTSIDE RECORDS SUMMARY | 2025-06-14 06:11 | XMS_ITS | Clinical Summary ---
Author Organization [facility] Address [address] [place] [address] Care Team Providers Care Agency Owner Name Role Phone Bora García MD Primary Care Provider + [phone] Medications Sod Picosulfate-Mag Ox-Cit Acd 10-3.5-12 MG-GM -GM/160ML solutionIndicat ions:Screening for colon cancer Take 160 mL by mouth Take As Directed for 2 doses. 320 mL 03/25/2022 Active Social History Tobacco Use Types Packs/Day Years Used Date Smoking Tobacco: Never Assessed Abuse Screen Answer Date Recorded Unsafe at Home or Work/School Not on file Feels Threatened by Someone? Not on file Does Anyone Keep You from Co ntacting Others or Doint Things Outside the Home? Not on file 09/09/2023 Physical Sign of Abuse Present Not on file 1 Housing Stability Answer Date Recorded Current Living Arrangements Not on file 08/28 Potentially Unsafe Housing Conditions Not on medardo e 09/09/2023 Family and Community Support Answer Paddy e Recorded Help with Day-to-Day Activities Not on file 09/09/2023 Lonely or Isolated Not on file 09/09/2023 Employment Answer Date Recorded Do you want help finding or keeping work or a humphrey b? Not on file 09/09/2023 Disabilities Answer Date Recorded Concentrating, Remembering, or Making Decisions Difficulty Not on file 09/09/2023 Doing Errands Independently Difficulty Not on fi le 09/09/2023 Education Answer Date Recorded Help with school or training? Not on file Preferred Language Not on file 09/09/2023 Sex and Gender Information Value Date Recorded Sex Assigned at Not on file Legal Sex Male 12:21 PM EDT Gender Identity Not on file Sexual Orientation Not on file Plan of Treatment Health Maintenance Due Date Last Done Comments COLOGUARD 2005 COLON CANCER SCREENING [address] COLONOGRAPHY 2005 FECAL OCCULT BLOOD TEST 2005 FIT Testing (1 year) 2005 Pneumococcal Vaccine 50+ (1 of 1 - PCV) 2010 ZOSTER VACCINE (1 of 2) 2010 ANNUAL PHYSICAL 03/25/2022 HEPATITIS C SCREENING 03/25/2022 TDAP/TD VACCINES (2 - Td or Tdap) 09/27/2022 012 COVID-19 Vaccine (1 - season) 2024 INFLUENZA VACCINE 08/28/2025 COLONOSCOPY 04/22/2032 04/22/2022 COLORECTAL CANCER SCREENING 04/22/2032 Procedures Procedure Name Priority Date/Time Associated Diagnosis Comments SCANNED - COLONOSCOPY 04/22/2022 from Last 3 Months or Most Recently Relevant to Health Maintenance Results * SCANNED - COLONOSCOPY (04/22/2022) Dawson Kapoor MD CHART REVIEW TABS Final Res ult from Last 3 Months or Most Recently Relevant to Health Maintenance Insurance [id number] [place] [id number] COUNTS INCLUDE 234 BEDS AT THE [facility] MEDICARE ADVANTAGE Care Teams Agency Owner Relationship Specialty Start Date End Date Bora García MD PCP - General Family Medicine 03/17/22
--- OUTSIDE RECORDS SUMMARY | 2025-06-14 06:11 | XMS_ITS | Continuity of Care Document ---
Author Organization [facility] Address [address] [place] [address] Care Team Providers Care Film Waxer Name Role Phone LULÚ FLORES Primary Care Provider Assessment No assessment recorded. Plan of Treatment Reminders Order Date Submit Date Provider Last Modified By Organization Details Last Modified Time Details Appointments None recorded. Lab None recorded. Referral None recorded. Procedures None recorded. Surgeries None recorded. Imaging XR, knee, 3 view 2024 025 [facility] (Centralized Scheduling), [address] [place] [address] , [place], [address], 11:38:15 US, duplex, venous, lower extremity 2024 025 [facility], [address] [place] [address] , [place], [address], 08:12:24 Medication Orders Voltaren Arthritis Pain 1 % topical gel 2024 025 [facility], [address] [facility] [address], [place], [address], 16:07:10 Patient TargetsNo targets recorded. Patient Instructions Encounter Date Encounter Id Patient Instructions Last Modified By Organization Details Last Modified Time 04/30/2025 [id number] CALL W CHANGES RTC OR ED IF SYMPTOMS CHANGE OR WORSEN KEEP NEXT INTERVAL CHECKUP Not available 04/30/2025 16:07:13 Reason for Referral None Reported. Results Created Date Observation Date Name Description Value Unit Range Abnormal Flag Note LastModifiedBy Organization Detail LastModifiedTime 05/01/20 25 US, duple x, venou s, lower extre mity No observ ation record ed. [email or web address] [facility] [address] [facility] , [place], [address], 05/01/2025 14:58:09 05/01/20 25 XR, knee, 3 view No observ ation record ed. [email or web address] [place] (Centralized Scheduling) [address] [place] [address] , [place], [address], 05/01/2025 14:59:53 Result Notes None recorded. Problems Name Problem SNOMED Code Status Onset Date Resolution Date Notes Provider Name and Address Organization Details Recorded Time Hypercholes terolemia 33678986 Active 2020 Henrietta Singleton null, [place] - [facility] 1 13:15:35 Bilateral cataracts 49155947 Active 2020 Henrietta Singleton null, [place] - [facility] 1 13:19:11 Acute low back pain 755048441 Active 2020 Anne-Marie Washington, POULTRY PATHOLOGIST [address], [place], [address], [place] - [facility] 1 14:39:12 Gastroesoph ageal reflux disease without esophagitis 403196648 Active 2020 Anupama Hay null, [place] [facility] 1 13:32:15 Coronary arterioscle rosis 88674340 Active 2020 Anupama Hay null[place] [facility] 1 13:35:49 Thrombocyto sis 4375297 Active 2021 Ali Raquel null, [place] [facility] 2 12:26:46 Vitamin D deficiency 44257689 Active 2021 Ali Raquel null, [place] [facility] 2 12:28:19 CT of abdomen abnormal 5144553227627 9107 Active 2021 Ali Raquel null, [place] - [facility] 2 21:34:27 Problem Notes None recorded. Procedures Surgical History Date Name Laterality Status Provider Name and Address Organization Details Recorded Time 05/14/20 25 Advance Care Planning completed Chano Grewal [place] - [facility] 05/14/2025 11:43:21 05/14/20 25 Functional Status Assessed completed Chano Grewal [place] [facility] 05/14/2025 11:43:21 09/26/20 24 Punch Biopsy completed Anne Ospina PA-C [address], [place], [address], [facility] - [facility] 09/26/2024 10:54:42 02/02/20 23 cardiac catheterization completed Anupama Merritt [place] - [facility] 04/13/2023 15:51:21 Back Surgery completed Henrietta Singleton [place] - [facility] 08/13/2021 13:16:12 cholecystectomy completed Henrietta Singleton [place] [facility] 08/13/2021 13:16:21 Eye Surgery completed Henrietta Singleton [place] [facility] 08/13/2021 13:19:06 Imaging Results None recorded. Procedure Notes None recorded. Medical Equipment None Reported. Allergies Allergen ID Allergen Name Allergen Category Reaction Reaction Severity Criticality Documentation Date Start Date Code Code System Note Provider Name and Address Organization Details Recorded Time 472709 Aleve medicatio n Not available Not available Not available 08/13/202150826 1 RxNorm was takin g frequ ently . cause d stage 4 renal failu re acute ly. Anne-Marie Washington, POULTRY PATHOLOGIST [address], [place], [address], [facility] - [facility] 14:25:01 49192 Levaquin medicatio n Not available Not available Not available 09/03/20162014 20059 2 RxNorm React ion: tendo n pain; Not Available [facility] 6 09:11:46 40372 nitroglyc delfin medicatio n Not available Not available Not available 09/03/20162014 4917 RxNorm React ion: extre me low BP; Not Available [facility] 6 09:11:47 49027 Excedrin medicatio n nausea Not available Not available 09/03/20162014 71615 0 RxNorm React ion: Extre me nause a; Not Available [facility] 6 09:27:38 67928 Keflex medicatio n rash Not available Not available 09/03/2016201416 7 RxNorm React ion: rash; Not Available [facility] 6 09:51:40 Medications Name Sig Start Date [...] Disconti nued on: 07/15/20 11 4:53PM;U ser: marco ;Est. Completi on: 06/20/20 10;Indic ation: Cutaneou s Candidia sis - ();Prin brandy: 05/21/20 10 Not Available Not Available [...] Disconti nued on: 03/22/20 16 1:58PM;U ser: sy;Es t. Completi on: 09/17/20 15;Pharm acyVerif ied: 08/18/20 [...] nued on: 07/26/20 12 11:37AM; User: marco ;Est. Completi on: 08/17/20 12;Indic ation: Epididym itis - (602.90) ;Printed : 06/22/20 12 Not Available Not [...] Disconti nued on: 06/14/20 12 9:43AM;U ser: corinnaert ;Est. Completi on: 01/11/20 12;Indic ation: Perianal [...] 07/20/20 16;Indic ation: Androgen Deficien cy - (2599 ) Not Available Not Available Not Available [...] Status: Recorded on: 07/04/20 15 4:35PM;U ser: grayn;Es t. Completi on: 08/03/20 15 Not Available Not Available Not Available Bactrim one bid 06/28 completed bactrim ds;Recor ded Status: Recorded on: 06/18/20 16 8:50PM;U ser: [email or web address]; Est. Completi on: 06/28/20 16;Indic ation: uri [...] Prescrib ed on: 01/17/20 15 3:47PM;U ser: sy;Es t. Completi on: 02/17/20 15;Pharm acyVerif ied: [...] Updated DateTime 5 162.56 cm 30.9 kg/m2 97389.6 3 g 14 /min 96 % 96 % 70 /min 98.1 [degF] 138/82 mm[Hg] Chano Grewal [place] - [facility] 15:53:28 Social History Question Answer Notes LastModified by Organizat ion Details LastModified Time Tobacco Smoking Status Former Smoker quit 27 years ago Henrietta londono, [place] - [facility] 08/13/2021 13:18:23 Are You Blind Or Do You Have Difficulty Seeing? Yes [email or web address] Information not available 08/13/2021 What Is Your Level Of Caffeine Consumption? Heavy [email or web address] Information not available 08/13/2021 In The 14 Days Before Symptom Onset, Have You Had Close Contact With A Laboratory-confir med COVID-19 While That Case Was Ill? No [...] Do You Have Serious Difficulty Hearing? Yes [email or web address] Information not available 08/13/2021 What Type Of [...] Or The Highest Degree You Have Received? [id number] Information not available 09/09/2021 Have There Been Any Changes To Your Family Or Social Situation? No Information no t available 09/09/2021 What Is The Fluoride Status Of Your Home? Fluoridated Information not available 09/09/2021 When Did You Quit Smoking? 16+yearskristen mehta Information not available 08/13/2021 Have You Recently Or Are You Planning To Travel To An Area With Zika Virus? No Information not available 02/15/2024 What Was The Date Of Your Most Recent Tobacco Screening? 05/14/2025 [email or web address] Information not available 05/14/2025 How Many Children Do You Have? 4 4 Boys [email or web address] Information not available 08/13/2021 What Is Your Current Pack Years? 30ormorepackgiselle rs Information not available 04/13/2023 Do You Use Protection During Sex? No Information not available 04/13/2023 Do You Use Protection Against STDs? No Information not available 04/13/2023 What Is Your Relationship Status? [email or web address] Information not available 08/13/2021 Are You Sexually Active? Yes Information not available 04/13/2023 Do You Have Smoke And Carbon Monoxide Detectors In Your Home? Yes Information not available 09/09/2021 At What Age Did You Start Smoking Tobacco? 13 [email or web address] Information not available 08/13/2021 Are You Passively Exposed To Smoke? No Information no t available 09/09/2021 How Much Tobacco Do You Smoke? No Information not available 02/15/2024 Has Tobacco Cessation Counseling Been Provided? No Information not available 09/09/2021 How Many Years Have You Smoked Tobacco? 30 Information not available 04/13/2023 Do You Have Difficulty Walking Or Climbing Stairs? No [email or web address] Information not available 08/13/2021 What Contraceptive Method [...] is your level of alcohol consumption? None [email or web address] Information not available 08/13/2021 Do you or have you ever used smokeless tobacco? Former smokeless tobacco user Information not available 09/09/2021 Are you currently employed? No Information not available 09/09/2021 Do you have transportation difficulties? No [email or web address] Information not available 08/13/2021 Are you able to walk? YESWOREST Information not available 08/13/2021 Do you have difficulty doing errands alone? No Information not available 08/13/2021 Are you able to care for yourself? Yes [email or web address] Information n ot available 08/13/2021 Do you have difficulty dressing or bathing? No [email or web address] Information not available 08/13/2021 Do you or have you ever used e-cigarettes or vape? Never used electronic cigarettes Information not available 09/09/2021 What is your exercise level? None Information not available 09/09/2021 Mental Status Question Answer Note LastModified by Organizat ion Details LastModified Time Do you feel stressed (tense, restless, nervous, or anxious, or unable to sleep at night)? [id number] Information not available 09/09/2021 Do you have difficulty concentrating, remembering or making decisions? No Information no t available 08/13/2021 Family History Relationship Description Onset Age of this Age Resolved Age Notes LastModified by Organization Details LastModified Time Mother Heart disease [email or web address] Not available 08/13 13:17:42 Mother Diabetes mellitus [email or web address] Not available 08/13 13:17:32 Father Heart disease [email or web address] Not available 08/13 13:17:45 Medical History No medical history recorded. Immunizations Vaccine Type Date Status Note Provider Nam e and Address Organization Details Recorded Time Tdap 09/27/2012 completed Not Available [facility] 12/29/2019 02:21:29 Past Encounters Encounter ID Performer Location Encounter Start Date Encounter Closed Date Diagnosis/Indication Diagnosis SNOMED-CT Code Diagnosis ICD10 Code Diagnosis Note [id number] Anen Ospina PA-C [facility] [address] [place] [address] 04/30/2025 15:44:11 04/30/2025 16:12:41 Pain of left knee joint 7636579550 80235 M25.562 pt has tried lidocain patch Pain in ri ght lower limb 525436638 M79.604 moist heat on right calf. Long-term current use of drug therapy 084400478 Z79.899 chronic conditions are stable. Health Concerns Section Related Observation LastModified by Organization Detai ls LastModified Time None Recorded Concern Status LastModified by Organization Details LastModified Time None Recorded Payers Encounter Date Sequence Insurance Name Policy Number Policy Nash Covered Member ID Nash Member ID Guarantor Name 04/30/2025 1 BCBS-[place]ID: JEANETTE [place] [employer] (MEDICARE REPLACEMENT HMO) [id number] Marco A Bahena [id number] Marco A Bahena Notes Date Note Type Note Provider Name and Address Organization Details Recorded Time 04/30/2025 text/html Patient is here for left [...] injury a year ago. Anne Ospina PA-C [facility] [address], [place], [address], [place] - [facility] 04/30/2025 16:09:40
--- OUTSIDE RECORDS SUMMARY | 2025-06-14 06:11 | XMS_ITS | Data Portability ---
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 Plan of Treatment Reminders Order Date Submit Date Provider Last Modified By Organization Details Last Modified Time Details Appointments None recorded. Lab None recorded. Referral None recorded. Procedures None recorded. Surgeries None recorded. Imaging MRI, knee, w/o contrast 2024 025 [facility] Central Scheduling, [address] [place] [address], [address], 22:36:40 Medication Orders None recorded. Patient TargetsNo targets recorded. Patient InstructionsNo instructions recorded. Reason for Referral None Reported. Results Created Date Observation Date Name Description Value Unit Range Abnormal Flag Note LastModifiedBy Organization Detail LastModifiedTime 05/23/20 25 05/23/2025 MRI, knee, w/o contr ast [facility] Ce Name: ALPA BAHENA [address] [place] [address] Phys: Nilam BAKER,Joaquin [place] [address] : 1959 Age: 64 Sex: M Acct: [id number] Loc: G.MRI PHONE #: Exam Date: 2024 Status : REG CLI FAX #: [phone] Rad# [id number] Unit# [id number] Admit Date: 2024 EXAMS: CPT CODE: [id number] MRI KNEE LEFT W/O CONT 68595 EXAMIN ATION: MRI KNEE LEFT W/O CONT [...] is a 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 us [...] PAGE 1 Signed Report (JUAN RAMON NUED) [facility] Name: JAYSONALPA DEIDRE [facility] [employer] Phys: Nilam [place] [address] : 1959 Age: 64 Sex: M Acct: [id number] Loc: G.MRI PHONE #: Exam Date: 2024 Status : REG CLI FAX #: Rad# [id number] Unit# [id number] Admit Date: 2024 EXAMS: CPT CODE: [id number] MRI KNEE LEFT W/O CONT [id number] Electr onical ly signed by: Suyapa morrow MD 2024 10:33 PM EDT RP Workst ation: SEALWR [id number] Electr onical ly Signed by SUYAPA Morrow [...] NILAM MASTERSON Consul ting Provid er: [facility] [address], [place], [address], 05/24/2025 07:11:27 Result Notes Documentation Provider Name and Address Organization Details Recorded Time Mri, Knee, W/o Contrast : [facility] Ce Name: ALPA BAHENA [address] [place] [address] Phys: [place] [address] : 1960 Age: 64 Sex: M Acct: [id number] Loc: G.MRI PHONE #: Exam Date: 05/23/2025 Status: REG CLI FAX #: Rad# [id number] Unit# [id number] Admit Date: 05/23/2025 EXAMS: CPT CODE: [id number] MRI KNEE LEFT W/O CONT 86046 EXAMINATION: MRI KNEE LEFT W/O CONT CLINICAL INDICATION: Male, 64 years old. PAIN TECHNIQUE: Multiplanar, multisequence images were obtained of the LEFT KNEE without IV contrast. Unless otherwise stated, incidental findings identified in this report do not require routine follow-up. CONTRAST: None. COMPARISON: None FINDINGS: OSSEOUS STRUCTURES: Unremarkable. No lesion, fracture, or AVN identified. MEDIAL COMPARTMENT: There is a complex tear of the posterior horn of the medial meniscus which includes a horizontal component extending to the inferior articular surface as well as a vertical component extending to both. Articular cartilage is normally preserved. LATERAL COMPARTMENT: The lateral meniscus appears normal. Articular cartilage and subchondral marrow are normally preserved. PATELLOFEMORAL COMPARTMENT: Normally preserved cartilage. No patellar subluxation or tilt. CRUCIATE LIGAMENTS: ACL and PCL appear normal. COLLATERAL LIGAMENTS: MCL and lateral complex are intact. EXTENSOR MECHANISM: Normal. JOINT SPACE: Trace effusion. No loose body or popliteal cyst. SOFT TISSUES: Normal. No mass, bursitis, or ganglion identified. ADDITIONAL FINDINGS: None. IMPRESSION: 1. Complex medial meniscal tear. 2. Trace effusion. PAGE 1 Signed Report (CONTINUED) [facility] Ce Name: ALPA BAHENA [address] [place] [address] Phys: Nilam BAKER,Jerad Oh[place] [id number] : 1960 Age: 64 Sex: M Acct: [id number] Loc: G.MRI PHONE #: Exam Date: 05/23/2025 Status: REG CLI FAX #: Rad# [id number] Unit# [id number] Admit Date: 05/23/2025 EXAMS: CPT CODE: [id number] MRI KNEE LEFT W/O CONT [id number] Electronically signed by: Suyapa Gaitan MD 05/23/2025 10:33 PM EDT at 2222 Reported and signed by: SUYAPA GAITAN CC: Anne Ospina PA-C; Jerad Demarco MD Dictated Date/Time: 05/23/2025 (2221) Technologist: TIFFANIE COCHRAN Transcribed Date/Time: 05/23/2025 (2221) [place] Line Attendant: Electronic Signature Date/Time: 05/23/2025 (2221) Printed Date/Time: 05/23/2025 (2235) BATCH NO: N/A PAGE 2 Signed Report CC'ed Logic: Ordering Provider: NILAM MASTERSON Attending Provider: NILAM MASTERSON Referring Provider: NILAM MASTERSON Consulting Provider: JUAN Mathis null, [place] - [facility] [place] [facility] [place] 05/24/2025 07:11:27 Problems Name Problem SNOMED Code Status Onset Date Resolution Date Notes Provider Name and Address Organization Details Recorded Time Hypercholes terolemia 73621067 Active 2020 Estefany Black null, [place] - [facility] [place] [facility] [place] 3 10:54:37 Bilateral cataracts 10724195 Active 2020 Estefany Black [place] [facility] [place] [facility] [place] 3 10:54:37 Acute low back pain 289281585 Active 2020 Estefany Black null[place] [facility] [place] [facility] [place] 3 10:54:37 Gastroesoph ageal reflux disease without esophagitis 713084735 Active 2020 Estefany Black [place] [facility] [place] [facility] [place] 3 10:54:37 Coronary arterioscle rosis 94100985 Active 2020 Estefany Black [place] [facility] [place] [facility] [place] 3 10:54:37 Vitamin D deficiency 73984319 Active 2021 Estefany Black [place] - [facility] [place] [facility] [place] 3 10:54:37 Thrombocyto sis 6094580 Active 2021 Estefany Black null[place] - [facility] [place] [facility] [place] 3 10:54:37 CT of abdomen abnormal 2818870905518 9107 Active 2021 Estefany Black null[place] - [facility] [place] [facility] [place] 3 10:54:37 Sensorineur al hearing loss 37487601 Active 2022 Estefany londono, DAVID - [facility] & [place] 3 10:54:37 Problem Notes None recorded. Procedures Surgical History Date Name Laterality Status Provider Name and Address Organization Details Recorded Time 3 Other completed Christy HERNANDEZ - [facility] - [place] [facility] [place] 02/18/2025 09:58:15 0 Back Surgery completed Christy HERNANDEZ - [facility] [place] [facility] [place] 02/18/2025 09:58:15 4 Other completed Christy HERNANDEZ - [facility] [place] & [place] 02/18/2025 09:58:15 Imaging Results None recorded. Procedure Notes None recorded. Medical Equipment None Reported. Allergies Allergen ID Allergen Name Allergen Category Reaction Reaction Severity Criticality Documentation Date Start Date Code Code System Note Provider Name and Address Organization Details Recorded Time 92543 nitroglyc delfin medicatio n Not available Not available Not available 07/13/20232014 4917 RxNorm Estefany Jeremiah londono, DAVID - [facility] & [place] 3 10:54:21 97472 Aleve medicatio n Not available Not available Not available 07/13/2023 39970 1 RxNorm Estefany Jeremiah londono, DAVID - [facility] & [place] 3 10:54:21 92111 Keflex medicatio n rash Not available Not available 07/13/20232014 14838 7 RxNorm Estefany Jeremiah londono, DAVID - [facility] & [place] 3 10:54:21 71890 Levaquin medicatio n Not available Not available Not available 07/13/20232014 71752 2 RxNorm Estefany Jeremiah londono, DAVID - [facility] & [place] 3 10:54:21 08202 Excedrin medicatio n nausea Not available Not available 07/13/20232014 89919 0 RxNorm Estefany londono, DAVID - [facility] & [place] 3 10:54:21 Medications Name Sig [...] Not Available Not Available Not Available Vitals Date Recorded Body temperature Heart rate Respiratory rate Systolic And Diastolic Provider Name and Address Organization Details Last Updated DateTime 07/13/2023 97.4 [degF] 79 /min 18 /min 137/72 mm[Hg] Estefany Black [facility] & [place] 10:53:44 Social History Question Answer Notes LastModified by Organizat ion Details LastModified Time Tobacco Smoking Status Former Smoker Christy londono, DAVID [facility] & [place] 02/18/2025 09:58:12 Do You [...] anxious, or unable to sleep at night)? [id number] Information not available 02/18/2025 Family History Relationship [...] available 07/13/2023 10:09:34 Medical History Condition Response Heart Disease Y Clotting Disorder Y Vision or Eye Problems Y Back Problems Y Arthritis Y Ear or Hearing Problems Y High Cholesterol Y Immunizations Vaccine Type Date Status Note Provider Nam e and Address Organization Details Recorded Time Tdap 09/27/2012 completed Estefany londono, [place] - [facility] & [place] 07/13/2023 10:54:45 Past Encounters Encounter ID Performer Location Encounter Start Date Encounter Closed Date Diagnosis/Indication Diagnosis SNOMED-CT Code Diagnosis ICD10 Code Diagnosis Note [id number] ASHLEIGH PEOPLES [facility] [place] [address] 05/12/2023 07:48:17 05/12/2023 07:48:41 Sensorineural hearing loss 67167098 H90.3 [id number] ASHLEIGH PEOPLES[address] [place] [address] 07/06/2023 07:56:11 07/06/2023 08:24:25 Sensorineural hearing loss 81055075 H90.3 [id number] Jerad Demarco MD [address] [address] 07/13/2023 09:55:02 07/13/2023 10:57:02 Osteoarthritis of right knee joint 0684887253 59407 M17.11 [id number] [facility] [place] [address] 12/02/2023 07:54:47 12/02/2023 07:59:54 Sensorineural hearing loss 83899133 H90.3 [id number] [facility] [address] [place] [address] 02/25/2025 15:07:31 02/25/2025 15:22:45 Sensorineural hearing loss 86436520 H90.3 [id number] Jerad Demarco MD [address] [place] [address] 05/15/2025 10:14:19 05/15/2025 11:19:35 Delmar test positive 482601242 S83.207A Acute meni scal tear, medial 688444115 S83.232A [id number] [facility] [address] [place] [address] 06/05/2025 14:46:22 06/05/2025 16:26:00 Tear of medial meniscus of knee 183669311 S83.242A Osteoarthr itis of left knee joint 5639401603 90721 M17.12 Health Concerns Section Related Observation LastModified by Organization Detai ls LastModified Time None Recorded Concern Status LastModified by Organization Details LastModified Time None Recorded Advance Directives Directive N: Payers Insurance Date Sequence Insurance Name Policy Number Policy Nash Covered Member ID Nash Member ID Guarantor Name 08/04/2023 2 [place] Alpa Bahena [id number] Alpa Bahena 06/02/2025 1 [place] [id number] Alpa Bahena [id number] Alpa Bahena Notes Date Note Type Note Provider Name and Address Organization Details Recorded Time 07/13/2023 text/html Patient here for complaints of right knee pain. Reports today he was unsure if he should cancel appt. as his knee is feeling much better. DOO: November 2022. Denies injury. X-ray at 04/13/23. MRI at [facility] 06/09/23. Denies history of injections. [id number] Jerad Demarco MD [address] [place] [address],[address], [place], [address], [facility] & [place] 07/13/2023 11:25:17 12/02/2023 text/html Patient was seen today for a hearing aid service. Cleaned and adjusted hearing aids this date. ASHLEIGH PEOPLES [address] [facility],[address], [place], [address], [facility] & [place] 12/02/2023 07:59:47 02/25/2025 text/html Patient was seen today for a hearing aid service. Cleaned and adjusted hearing aids this date. MEGAN HEALY, AUD [address], [place], [address], [facility] - [facility] & [place] 02/25/2025 15:22:39 05/15/2025 text/html This 64 year old male [...] reports helped slightly. CHE1 Jerad Demarco MD [address] [place] [address],[address], [place], [address], [facility] - NT [facility] & [place] 05/17/2025 06:47:04 06/05/2025 text/html Pt is here for M [facility] - MRI LEFT KNEE - 05.23.25IMPRESSION:1. Complex medial meniscal tear.2. Trace effusion.PCP- E. BlevinsCardio- Nicholas- 5 stents. Last stent per pt was 2022On PlavixBorderline DM- E1SF Jerad Demarco MD [address] [place] [address],[address], [place], [address], [facility] - [facility] & [place] 06/06/2025 07:56:29
--- OUTSIDE RECORDS SUMMARY | 2025-06-14 06:11 | XMS_ITS | Clinical Summary ---
Author Organization [facility] Address [address] [place], [place] [address] Care Team Providers Care Lawyer Name Role Phone None, None Primary Care Provider Unavailabl e Allergies Active Allergy Reactions Criticality Noted Date Comments Acetaminophen-Caffeine Nausea And Vomiting 02/27 Nitroglycerin Other (See Comments) 03/25/2017 Blood pressure lowers, heart rate lowers Medications fenofibrate micronized (ANTARA) 43 mg Capsule Take 43 mg by mouth daily. Active ranolazine (RANEXA) 500 mg Tablet Sustained Release 12 hr Take 500 mg by mouth 2 times daily. Active ranitidine (ZANTAC) 150 mg Capsule Take by mouth 2 times daily. Active clopidogrel (PLAVIX) 75 mg tablet Take 75 mg by mouth daily. Active BABY ASPIRIN PO Take 81 mg by mouth daily. Active Acetaminophen (TYLENOL ARTHRITIS PAIN) 650 mg Tablet Sustained Release Take 650 mg by mouth daily. Active gabapentin (NEURONTIN) 100 mg capsuleIndicatio ns:Orchialgia Take 1 Cap by mouth 3 times daily. 90 Cap 2 03/25/2017 Active Active Problems Problem Noted Date Diagnosed Date Bilateral hydrocele 05/06/2017 Varicocele 04/06/2017 Social History Tobacco Use Types Packs/Day Years Used Date Smoking Tobacco: Former Alcohol Use Standard Drinks/Week Comments No 0 (1 standard drink = 0.6 oz pur e alcohol) Sex and Gender Information Value Date Recorded Sex Assigned at Not on file Legal Sex Male 1:37 PM EDT Gender Identity Not on file Sexual Orientation Not on file Last Filed Vital Signs Vital Sign Reading Time Taken Comments Blood Pressure - - Pulse - - Temperature - - Respiratory Rate 16 03/25/2017 9:29 AM EDT Oxygen Saturation - - Inhaled Oxygen Concentration - - Weight 79.8 kg (176 lb) 03/25/2017 9:29 AM EDT Height 161.3 cm (5' 3.5 ) 03/25/2017 9:29 AM EDT Body Mass Index 30.69 03/25/2017 9:29 AM EDT Plan of Treatment Health Maintenance Due Date Last Done Comments Cologuard 1960 Colonoscopy 1960 Colorectal Cancer Screening 1960 FIT 1960 Lipid Screening 1978 Tetanus Vaccination (Every 10 Years) 1978 Hepatitis C Virus (HCV) Screening 1981 Pneumococcal Vaccine: 50+ Years (1 of 1 - PCV) 010 Zoster-RZV(Shingrix) (1 of 2) 2010 COVID-19 Vaccine (1 - 2023-25 season) 2024 Depression Screening 11/28/2024 Influenza Vaccination (#1) 2025 RSV Vaccines (1 - 1-dose 75+ series) 2035 Insurance MEDICARE MEDICARE Care Teams Lawyer Relationship Specialty Start Date End Date None, None [address] [place] [address] PCP - General 03/24/17
--- NOTE | 2025-06-14 06:30 | NM_ITS ---
APPROVED REPORT Exam: Nuclear Stress Test Indication: cad, 5 stents, hyperlipidemia, fm hx., sob Patient Location: Outpatient Stress Tech: Francine FANG Tech:Geovanna Bertrand NORA RT (R)(N)(M) Ht: 5 ft 3 in Wt: 184 lbs HR: 53 bpm BP: 148/77 mmHg BSA: 1.87 m2 TID: 1.46 BMI: 32.5 History: cad, 5 stents, hyperlipidemia, fm hx., sob Procedure: Patient received 0.4 mg of intravenous Lexiscan, resting heart rate 53 bpm, resting blood pressure 148/77 mmHg, with Lexiscan maximum heart rate achieved was 87 bpm which is % of the maximum predicted heart rate and blood pressure was 144/74 mmHg. With Lexiscan, patient denied any complaint of chest pain. Cardiac Stress and Resting SPECT Images: Cardiac Stress and Resting SPECT images were obtained using technetium 99m Myoview 30.9 mCi stress and 10.76 mCi at rest. Resting and stress imaging in supine and prone positions demonstrate a medium-sized, moderate, partially reversible perfusion defect in the basal to mid lateral LV alvarez. There is increase in transient ischemic dilatation ratio (TID 1.46), which may be suggestive of possible multivessel disease or balanced ischemia. Gated imaging demonstrates normal global and regional LV systolic function. LVEF is calculated at 52%. Conclusion: Medium-sized, moderate, partially reversible perfusion defect in the basal to mid lateral LV alvarez. Findnigs are suggestive of partial reversible ischemia. There is also increase in transient ischemic dilatation ratio (TID 1.46), which may be suggestive of possible multivessel disease or balanced ischemia. Gated imaging demonstrates normal global and regional LV systolic function. LVEF is calculated at 52%. Electronically signed by : Maria Ines Abraham MD 06/15/2025 15:34:47
[2025-06-14] MEDS: SODIUM CHLORIDE 0.9% 10ML SYR (RAD ONLY) 10 ML IV (11:07)
[2025-06-14] MEDS: ISOTOPE MYOVIEW (PER STUDY) 1 DOSE IV (11:07)
== END 2025-06-14 23:59 | disposition home or self-care (01) ==
LOC: RAD 06:09
PROVIDERS: Visit Provider Nurse Practitioner Family
DX: Z01.810 Encounter for preprocedural cardiovascular examination (principal); R94.39 Abnormal result of other cardiovascular function study; R94.31 Abnormal electrocardiogram [ECG] [EKG]; I10 Essential (primary) hypertension; I25.10 Atherosclerotic heart disease of native coronary artery without angina pectoris; E78.5 Hyperlipidemia, unspecified; Z95.818 Presence of other cardiac implants and grafts
CPT/HCPCS: 78452; 93016; 93017; 93018; A9502; J2785

== ENCOUNTER 2025-06-25 10:49 | Day surgery (SDC) | payer MEDICARE, SELFPAY ==
[2025-06-25] VITALS (14 sets, daily range): BP systolic 101–162; BP diastolic 57–82; PULSE 53–94; RESP 16–20; O2SAT 94–97; BMI 32.2
--- NOTE | 2025-06-25 07:12 | IR_ITS ---
APPROVED REPORT Patient Location: Outpatient PROCEDURES Left heart catheterization Left ventriculogram Selective coronary angiogram Intravascular ultrasound of the dominant circumflex artery Intravascular ultrasound of the proximal LAD INDICATION Coronary artery disease, Worsening angina pectoris, Angiographic ambiguity in the LAD and circumflex artery, Informed consent was obtained prior to the procedure. COMPLICATIONS NONE Estimated Blood Loss: LESS THAN 10 ML TECHNIQUE One percent lidocaine used to anesthetize the right anterior aspect of the wrist. The right radial artery was accessed via the Seldinger technique. A 6 Latvian sheath was placed in the right radial artery. 2.5 mg of Verapamil, 800 mcg of nitroglycerin, 1mg Lidocaine and 5000 U Heparin were given through the arterial sheath. The JL3 catheter was also used to perform left heart catheterization, left ventriculogram and selective coronary angiogram. At the end the diagnostic angiogram therapeutic heparin was administered giving a therapeutic ACT and the guide catheter was placed in the left main artery followed by Choice PT extra-support wire placed on the circumflex artery. Intravascular ultrasound probe was advanced which demonstrated moderate plaque in the proximal segment creating an approximately 40% plaque burden stenosis. The ostial segment was widely patent. The wire was then pulled back and placed into the LAD and intravascular ultrasound probe was advanced which demonstrated patent ostial segment with good expansion of the stents and good sizing. At the end of the procedure the apparatus was removed the sheath was removed and hemostasis was achieved using TR banding patient was transferred to the postop boarding in stable condition ANGIOGRAPHIC RESULTS The left main artery Short and normal The left anterior descending artery Has ostial 10 to 20% stenosis followed by proximal stent which is widely patent with minimal in-stent restenosis with excellent proximal distal transitioning. The remaining LAD is widely patent. The circumflex artery Is a large dominant vessel with proximal 40% plaque stenosis based on IVUS with mid vessel 30% stenosis The right coronary artery Vestigial and normal The GOMES ventriculogram reveals Normal 60% The left ventricular end-diastolic pressure 15 mmHg IMPRESSION Patent coronary arteries as described above with widely patent stent Moderate nonflow limiting plaque in the circumflex artery Normal ejection fraction Normal LVEDP PLAN 1. Medical management aggressive risk factor modification Electronically signed by : Cole Peterson MD 06/25/2025 12:33:40
[2025-06-25 11:07] LABS: Hematocrit 42.0 % (42.0-52.0); Hemoglobin 13.6 g/dL (14.1-18.0); Immature Granulocytes % 0.2 %; Mean Corpuscular HGB Conc 32.4 g/dL (31.8-35.4); Mean Corpuscular Hemoglobin 29.2 pg (27.0-31.2); Mean Corpuscular Volume 90.3 fl (80-94); Nucleated Red Blood Cells % 0 %; Platelet Count 422 K/mm3 (142-424); Red Blood Count 4.65 M/mm3 (4.60-6.20); Red Cell Distribution Width-SD 47.5 fL; White Blood Count 9.2 K/mm3 (4.8-10.8)
[2025-06-25 11:16] LABS: Potassium 4.3 mmoL/L (3.5-5.1); Sodium 136 mmol/L (136-145)
[2025-06-25 11:17] LABS: Anion Gap 10.3 mEq/L (5-15); Blood Urea Nitrogen 13 mg/dl (9-20); Calcium 10.0 mg/dl (8.4-10.2); Carbon Dioxide 30 mmol/L (22.0-30.0); Chloride 100 mmol/L (98-107); Creatinine Clearance Estimated 87 mL/min (50-200); Creatinine,Serum 1.00 mg/dl (0.66-1.25); Estimated Glomerular Filt Rate 75 ml/min (>60); GFR (African American) 91 ML/MIN (>60); Glucose 108 mg/dl (74-100)
[2025-06-25] MEDS: 0.9 % SODIUM CHLORIDE 500 ML 25 ML IV (11:52)
[2025-06-25] MEDS: LIDOCAINE 1% 10ML MDV 10 ML IJ (11:52)
[2025-06-25] MEDS: HEPARIN 1,000 UNITS/500ML NS (CATH LAB) 3000 UNIT IV (11:52)
[2025-06-25] MEDS: HEPARIN 1,000 UNITS/ML 10ML VIAL (CATH LAB) 5000 UNIT IV (11:53)
[2025-06-25] MEDS: NITROGLYCERIN 800MCG/8ML SYR (CATH LAB) 800 MCG IA (11:53)
[2025-06-25] MEDS: VERAPAMIL 2.5MG/ML 2ML VIAL 2.5 MG IV (11:54)
[2025-06-25] MEDS: FENTANYL 100MCG/2ML VIAL 50 MCG IV (12:25)
[2025-06-25] MEDS: MIDAZOLAM HCL 1MG/ML 5ML VIAL 1 MG IV (12:25)
[2025-06-25] MEDS: IOPAMIDOL-370 (76%);100ML BOTTLE 50 ML IV (13:23)
== END 2025-06-25 16:19 | disposition home or self-care (01) ==
PROVIDERS: PCP Physician Assistant; Visit Provider Internal Medicine
PROC: 4A023N7 Measurement of Cardiac Sampling and Pressure, Left Heart, Percutaneous Approach (ICD-10-PCS; CPT 93452; principal; 2025-06-25 11:30)
DX: I25.118 Atherosclerotic heart disease of native coronary artery with other forms of angina pectoris (principal); R94.30 Abnormal result of cardiovascular function study, unspecified; I10 Essential (primary) hypertension; E78.5 Hyperlipidemia, unspecified; K21.9 Gastro-esophageal reflux disease without esophagitis; Z95.5 Presence of coronary angioplasty implant and graft; Z79.82 Long term (current) use of aspirin; Z79.02 Long term (current) use of antithrombotics/antiplatelets; Z79.899 Other long term (current) drug therapy; Z88.8 Allergy status to other drugs, medicaments and biological substances; Z82.49 Family history of ischemic heart disease and other diseases of the circulatory system
CPT/HCPCS: 36415; 80048; 85025; 92978; 92979; 93458; 99152; C1725; C1760; C1769; J1200; J1644; J2003; J3010; J7040; Q9967